=== PATIENT | female | born 1960 | race Caucasian/White ===

== ENCOUNTER → 2021-02-25 | Outpatient (CLI) | payer BC ==
--- NOTE | 2021-03-02 09:53 | CTL ---
EXAMINATION TYPE: CT Low Dose Lung DATE OF EXAM ORDERED: 02/25/2021 HISTORY: Personal history of tobacco use . Lung cancer screening CT DLP: 66.[address] CTDI: 1.9 mGy Automated exposure control for dose reduction was used. SCREENING VISIT: Yes COMPARISON: None TECHNIQUE: Low dose computed tomography scan was performed through the chest at 1 mm thick sections a nd reconstructed images in multiple planes at 1 mm and [address] DIAGNOSTIC QUALITY: Satisfactory FINDINGS: LUNG NODULES: Present, detailed below: Solid pulmonary nodule measuring 4 mm in the right upper lobe (4:100). Solid pulmonary nodule measuring 3 mm in the right lower lobe posterolaterally (4:227). Solid pulmonary nodule measuring 3 mm in the right lower lobe posteriorly (4:168). Calcified granuloma of the left upper lobe. LUNGS: COPD: Severity: Mild centrilobular emphysema of the lung apices Fibrosis: Severity: None Lymph nodes: None Other findings: None RIGHT PLEURAL SPACE: Effusion: None Calcification: None Thickening: Mild Pneumothorax: None LEFT PLEURAL SPACE: Effusion: None Calcification: None Thickening: Mild Pneumothorax: None HEART: Heart Size: Normal Coronary calcification: Minimal Pericardial effusion: None OTHER FINDINGS: Upper abdomen: None Bony thorax: Degenerative changes of the cervical spine Supraclavicular region: None Other: None IMPRESSION: 1. Multiple sub-6 mm pulmonary nodules. 2. Mild centrilobular emphysema. 3. Minimal calcified coronary artery disease. CT LUNG RAD AND CT CHEST RECOMMENDATION: Lung-Rad 2 Benign Appearance or Behavior: Continue annual sc reening with LDCT in 12 months. S Modifier (other clinically significant findings): None
== END | disposition home or self-care (01) ==
LOC: RADCTMAIN 16:49
PROVIDERS: ATTEND Internal Medicine
DX: Z12.2 Encounter for screening for malignant neoplasm of respiratory organs (principal); Z87.891 Personal history of nicotine dependence; R91.8 Other nonspecific abnormal finding of lung field; J43.9 Emphysema, unspecified
CPT/HCPCS: 71271

== ENCOUNTER 2023-01-23 11:16 | Inpatient (IN) | payer BC, OTHER ==
[2023-01-23] MEDS ORDERED: SODIUM CHLORIDE 0.9% 500 ML 500 ML IV STA (11:32)
[2023-01-23] MEDS ORDERED: IBUPROFEN 600 MG TAB PO STA (11:34)
[2023-01-23] MEDS ORDERED: IPRATROPIUM-ALBUTEROL 3 ML NEB INHALATION STA (11:47)
--- NOTE | 2023-01-23 11:52 | ED ---
URI HPI - General Chief Complaint: Upper Respiratory Infection Stated Complaint: sob Time Seen by Provider: 01/23/23 11:22 Source: patient, RN notes reviewed Mode of arrival: ambulatory Limitations: no limitations - History of Present Illness Initial Comments: 62-year-old female presents emergency Department with chief complaint of cough congestion shortness of breath. She states her last few days she's had productive cough she states she has history of COPD, oxygen dependent at home. Patient states she had a negative influenza test Patient was seen at urgent care sent over for evaluation. y reported chest x-ray showing possible mass. Patient is a current smoker he sees Dr. Cuenca. Patient denies any nausea vomiting diarrhea and no recent sick contacts - Related Data Home Medications Medication Instructions Recorded Confirmed Albuterol Sulfate [Albuterol 2 puff PO RT-QID PRN 01/23/23 01/23/23 Sulfate Hfa] Brexpiprazole [Rexulti] 0.5 mg PO HS 01/23/23 01/23/23 Desvenlafaxine [Pristiq ER] 100 mg PO DAILY 01/23/23 01/23/23 Fluticasone/Umeclidin/Vilanter 1 puff INHALATION RT-DAILY 01/23/23 01/23/23 [Trelegy Ellipta 200-62.5-25] HYDROcodone/APAP 7.5-325MG [[place] 1 tab PO TID PRN 01/23/23 01/23/23 7.5-325] Ibuprofen [Motrin] 800 mg PO Q8H PRN 01/23/23 01/23/23 LORazepam [Ativan] 0.5 mg PO HS PRN 01/23/23 01/23/23 lamoTRIgine [LaMICtal] 200 mg PO BID 01/23/23 01/23/23 predniSONE 5 mg PO DAILY 01/23/23 01/23/23 Allergies Allergy/AdvReac Type Severity Reaction Status Date / Time morphine Allergy Rash/Hives Verified 01/23/23 13:51 Review of Systems ROS Statement: Those systems with pertinent positive or pertinent negative responses have been documented in the HPI. ROS Other: All systems not noted in ROS Statement are negative. Past Medical History Past Medical History: COPD History of Any Multi-Drug Resistant Organisms: None Reported Past Surgical History: No Surgical Hx Reported Past Psychological History: No Psychological Hx Reported Smoking Status: Current every day smoker Past Alcohol Use History: None Reported Past Drug Use History: None Reported General Exam Limitations: no limitations General appearance: alert, in no apparent distress Head exam: Present: atraumatic, normocephalic, normal inspection Eye exam: Present: normal appearance, PERRL, EOMI. Absent: scleral icterus, conjunctival injection, periorbital swelling ENT exam: Present: normal exam, normal oropharynx, mucous membranes moist Neck exam: Present: normal inspection, full ROM. Absent: tenderness, meningismus, lymphadenopathy Respiratory exam: Present: wheezes, decreased breath sounds. Absent: normal lung sounds bilaterally, respiratory distress, rales, rhonchi, stridor Cardiovascular Exam: Present: normal rhythm, tachycardia, normal heart sounds. Absent: systolic murmur, diastolic murmur, rubs, gallop, clicks GI/Abdominal exam: Present: soft, normal bowel sounds. Absent: distended, tenderness, guarding, rebound, rigid Course Vital Signs 01/23/23 01/23/23 01/23/23 11:19 11:49 11:51 Temperature 100.1 F H Pulse Rate 103 H 100 Respiratory 24 22 Rate Blood Pressure 108/67 O2 Sat by Pulse 96 Oximetry Medical Decision Making - Medical Decision Making Was pt. sent in by a medical professional or institution (, PA, DOCKET SPECIALIST, urgent care, hospital, or jail...) When possible be specific @ -[Urgent care Did you speak to anyone other than the patient for history (EMS, parent, family, police, friend...)? What history was obtained from this source @ -[No] Did you review nursing and triage notes (agree or disagree)? Why? @ -[I reviewed and agree with nursing and triage notes] Were old charts reviewed (outside hosp., previous admission, EMS record, old EKG, old radiological studies, urgent care reports/EKG's, jail records)? Report findings @ -[No old charts were reviewed] Differential Diagnosis (chest pain, altered mental status, abdominal pain women, abdominal pain men, vaginal bleeding, weakness, fever, dyspnea, syncope, hea dache, dizziness, GI bleed, back pain, seizure, CVA, palpatations, mental health, musculoskeletal)? @ -[Differential Dyspnea: Coronary syndrome, arrhythmia, tamponade, asthma, COPD, pulmonary embolism, pneumonia, pneumothorax, pulmonary effusion, anaphylaxis, diabetic ketoacidosis, flailed chest, pulmonary contusion, diaphragmatic rupture, anemia, neuromuscular, this is not meant to be an all-inclusive list. ] EKG interpreted by me (3pts min.). @ -[As above] X-rays interpreted by me (1pt min.). @ -[None done] CT interpreted by me (1pt min.). @ -[CT chest showing multifocal pneumonia possible underlying mass U/S interpreted by me (1pt. min.). @ -[None done] What testing was considered but not performed or refused? (CT, X-rays, U/S, labs)? Why? @ -[None] What meds were considered but not given or refused? Why? @ -[None] Did you discuss the management of the patient with other professionals (professionals i.e. , PA, DOCKET SPECIALIST, lab, RT, psych nurse, social services coordinator, lead systems developer, teacher, safety and security officer, medical case worker)? Give summary @ -[Dr. Kaye for admission for treatment of COPD exacerbation, multifocal pneumonia Was smoking cessation discussed for >3mins.? @ -[No] Was critical care preformed (if so, how long)? @ -[No] Were there social determinants of health that impacted care today? How? (Homelessness, low income, unemployed, alcoholism, drug addiction, transportation, low edu. Level, literacy, decrease access to med. care, intermediate, rehab)? @ -[No] Was there de-escalation of care discussed even if they declined (Discuss DNR or withdrawal of care, Hospice)? DNR status @ -[No] What co-morbidities impacted this encounter? (DM, HTN, Smoking, COPD, CAD, Cancer, CVA, ARF, Chemo, Hep., AIDS, mental health diagnosis, sleep apnea, morb id obesity)? @ -[COPD, smoking] Was patient admitted / discharged? Hospital course, mention meds given and route, prescriptions, significant lab abnormalities, going to OR and other pertinent info. @ -[Admitted patient has multifocal pneumonia, requiring further oxygenation, noted fever and concern for underlying mass will have consult to pulmonology. Patient was started on Rocephin, azithromycin] Undiagnosed new problem with uncertain prognosis? @ -[No] Drug Therapy requiring intensive monitoring for toxicity (Heparin, Nitro, Insulin, Cardizem)? @ -[No] Were any procedures done? @ -[No] Diagnosis/symptom? @ -[Multifocal pneumonia] Acute, or Chronic, or Acute on Chronic? @ -[Acute] Uncomplicated (without systemic symptoms) or Complicated (systemic symptoms)? @ -[Complicated] Side effects of treatment? @ -[No] Exacerbation, Progression, or Severe Exacerbation? @ -[No] Poses a threat to life or bodily function? How? (Chest pain, USA, PR, pneumonia, PE, COPD, DKA, ARF, appy, cholecystitis, CVA, Diverticulitis, Homicidal, Suicidal, threat to staff... and all critical care pts) @ -[Yes patient has possible respiratory failure - Lab Data Result diagrams: 01/23/23 11:32 01/23/23 11:32 Lab Results 01/23/23 01/23/23 01/23/23 Range/Units 11:32 11:32 11:32 WBC 15.2 H (3.8-10.6) k/uL RBC 3.86 (3.80-5.40) m/uL Hgb 12.0 (11.4-16.0) gm/dL Hct 35.3 (34.0-46.0) % MCV 91.5 (80.0-100.0) fL MCH 31.0 (25.0-35.0) pg MCHC 33.8 (31.0-37.0) g/dL RDW 13.8 (11.5-15.5) % Plt Count 276 (150-450) k/uL MPV 8.2 Neutrophils % 90 % Lymphocytes % 3 % Monocytes % 5 % Eosinophils % 1 % Basophils % 0 % Neutrophils # 13.8 H (1.3-7.7) k/uL Lymphocytes # 0.4 L (1.0-4.8) k/uL Monocytes # 0.7 (0-1.0) k/uL Eosinophils # 0.1 (0-0.7) k/uL Basophils # 0.0 (0-0.2) k/uL PT 10.2 (10.0-12.5) sec INR 0.9 (<1.2) APTT 26.8 (22.0-30.0) sec Sodium 133 L (137-145) mmol/L Potassium 3.7 (3.5-5.1) mmol/L Chloride 97 L (98-107) mmol/L Carbon Dioxide 25 (22-30) mmol/L Anion Gap 11 mmol/L BUN 4 L (7-17) mg/dL Creatinine 0.63 (0.52-1.04) mg/dL Est GFR (CKD-EPI)AfAm >90 (>60 ml/min/1.73 sqM) Est GFR (CKD-EPI)NonAf >90 (>60 ml/min/1.73 sqM) Glucose 126 H (74-99) mg/dL Plasma Lactic Acid [place]ando (0.7-2.0) mmol/L Calcium 9.1 (8.4-10.2) mg/dL Magnesium 1.8 (1.6-2.3) mg/dL Total Bilirubin 0.8 (0.2-1.3) mg/dL AST 56 H (14-36) U/L ALT 87 H (4-34) U/L Alkaline Phosphatase 279 H (38-126) U/L Troponin I (0.000-0.034) ng/mL Total Protein 7.0 (6.3-8.2) g/dL Albumin 3.9 (3.5-5.0) g/dL Influenza Type A (PCR) (Not Detectd) Influenza Type B (PCR) (Not Detectd) RSV (PCR) (Not Detectd) SARS-CoV-2 (PCR) (Not Detectd) 01/23/23 01/23/23 01/23/23 Range/Units 11:32 11:32 11:34 WBC (3.8-10.6) k/uL RBC (3.80-5.40) m/uL Hgb (11.4-16.0) gm/dL Hct (34.0-46.0) % MCV (80.0-100.0) fL MCH (25.0-35.0) pg MCHC (31.0-37.0) g/dL RDW (11.5-15.5) % Plt Count (150-450) k/uL MPV Neutrophils % % Lymphocytes % % Monocytes % % Eosinophils % % Basophils % % Neutrophils # (1.3-7.7) k/uL Lymphocytes # (1.0-4.8) k/uL Monocytes # (0-1.0) k/uL Eosinophils # (0-0.7) k/uL Basophils # (0-0.2) k/uL PT (10.0-12.5) sec INR (<1.2) APTT (22.0-30.0) sec Sodium (137-145) mmol/L Potassium (3.5-5.1) mmol/L Chloride (98-107) mmol/L Carbon Dioxide (22-30) mmol/L Anion Gap mmol/L BUN (7-17) mg/dL Creatinine (0.52-1.04) mg/dL Est GFR (CKD-EPI)AfAm (>60 ml/min/1.73 sqM) Est GFR (CKD-EPI)NonAf (>60 ml/min/1.73 sqM) Glucose (74-99) mg/dL Plasma Lactic Acid Mando 1.3 (0.7-2.0) mmol/L Calcium (8.4-10.2) mg/dL Magnesium (1.6-2.3) mg/dL Total Bilirubin (0.2-1.3) mg/dL AST (14-36) U/L ALT (4-34) U/L Alkaline Phosphatase (38-126) U/L Troponin I 0.020 (0.000-0.034) ng/mL Total Protein (6.3-8.2) g/dL Albumin (3.5-5.0) g/dL Influenza Type A (PCR) Not Detected (Not Detectd) Influenza Type B (PCR) Not Detected (Not Detectd) RSV (PCR) Not Detected (Not Detectd) SARS-CoV-2 (PCR) Not Detected (Not Detectd) - EKG Data -: EKG Interpreted by Me EKG Comments: EKG performed at 11:44 sinus rhythm rate of 98 by mouth 132 QRS 124 QT/QTC 357/413 Disposition Clinical Impression: Multifocal pneumonia, COPD (chronic obstructive pulmonary disease) Disposition: ADMITTED IP TO THIS HOSP Condition: Fair Time of Disposition: 13:38
[2023-01-23 12:02] LABS: Basophils % (A) 0 %; Eosinophils # (A) 0.1 k/uL (0-0.7); Eosinophils % (A) 1 %; HCT 35.3 % (34.0-46.0); Lymphocytes # (A) 0.4 k/uL (1.0-4.8); Lymphocytes % (A) 3 %; MCHC 33.8 g/dL (31.0-37.0); MCV 91.5 fL (80.0-100.0); Mean Platelet Volume 8.2; Monocytes # (A) 0.7 k/uL (0-1.0); Monocytes % (A) 5 %; Neutrophils # (A) 13.8 k/uL (1.3-7.7); Neutrophils % (A) 90 %; Platelet Count 276 k/uL (150-450); RBC 3.86 m/uL (3.80-5.40); RDW 13.8 % (11.5-15.5); WBC 15.2 k/uL (3.8-10.6)
[2023-01-23 12:10] LABS: INR 0.9 (<1.2); Partial Thromboplastin Time 26.8 sec (22.0-30.0); Prothrombin Time 10.2 sec (10.0-12.5)
[2023-01-23 12:13] LABS: ALT 87 U/L (4-34); AST 56 U/L (14-36); African American GFR (CKD) >90 (>60 ml/min/1.73 sqM); Albumin 3.9 g/dL (3.5-5.0); Alkaline Phosphatase 279 U/L (38-126); Anion Gap 11 mmol/L; Blood Urea Nitrogen 4 mg/dL (7-17); Calcium 9.1 mg/dL (8.4-10.2); Carbon Dioxide 25 mmol/L (22-30); Chloride 97 mmol/L (98-107); Glucose 126 mg/dL (74-99); Magnesium 1.8 mg/dL (1.6-2.3); Non-African American GFR(CKD) >90 (>60 ml/min/1.73 sqM); Potassium 3.7 mmol/L (3.5-5.1); Sodium 133 mmol/L (137-145); Total Bilirubin 0.8 mg/dL (0.2-1.3)
[2023-01-23] MEDS ORDERED: methylPREDNISolone SOD SUCCI 125 MG/2 ML VIAL IV STA (12:22)
--- NOTE | 2023-01-23 13:00 | CT ---
EXAMINATION TYPE: CT chest w con DATE OF EXAM: 01/23/2023 COMPARISON: None HISTORY: SOB CT DLP: 226.5 mGycm Automated exposure control for dose reduction was used. CONTRAST: CT scan of the chest is performed with IV Contrast, patient injected with 100 mL of Isovue 370. FINDINGS: LUNGS: There is masslike opacity at the left lower lobe which is pleural-based with surrounding retic ulonodular infiltrate. Measurement is approximately 3.2 x 2.0 cm. This could reflect infectious proce ss over neoplasm is not excluded. Also within the right suprahilar region there is elongated density noted with air bronchograms measuring 3.4 x 1.6 cm which also extends to the pleural surface. There a re scattered reticulonodular infiltrates seen bilaterally. More nodular density is seen within the ri ght upper lobe measuring 1 cm. Additional nodular density right lower lobe anteriorly at the costophr enic sulcus measures 1.5 cm. Additional basilar atelectasis and nodular density right medial lung bas e. MEDIASTINUM: There are no greater than 1 cm hilar or mediastinal lymph nodes. No pericardial effusi on is seen. Thoracic aorta is of normal caliber. The heart is not enlarged. UPPER ABDOMEN: No significant abnormality appreciated. OTHER: No additional significant abnormality is seen. IMPRESSION: 1. Probable multifocal pneumonia. Neoplasm is not excluded. Strict clinical correlation as well as fo llow-up until resolution is advised.
[2023-01-23] MEDS ORDERED: AZITHROMYCIN 500 MG in SODIUM CHLORIDE 0.9% 250 ML IVPB STA (13:27)
[2023-01-23] MEDS ORDERED: PNEUMONIA PROTOCOL UTILIZED 1 EACH MISC PO PRN (13:27)
[2023-01-23] MEDS ORDERED: HYDROcodone/APAP 7.5-325MG 1 EACH TAB PO PRN (13:55)
[2023-01-23] MEDS ORDERED: IBUPROFEN 800 MG TAB PO PRN (13:55)
[2023-01-23] MEDS ORDERED: LORazepam 0.5 MG TAB PO PRN (13:55)
[2023-01-23] MEDS ORDERED: LACTULOSE 20 GM/30 ML CUP PO PRN (14:12)
[2023-01-23] MEDS ORDERED: ACETAMINOPHEN TAB 325 MG TAB PO PRN (14:12)
[2023-01-23] MEDS ORDERED: NALOXONE 0.4 MG/ML 1 ML VIAL IV PRN (14:12)
[2023-01-23] MEDS ORDERED: MELATONIN 3 MG TABLET PO PRN (14:12)
[2023-01-23] MEDS ORDERED: ONDANSETRON 4 MG/2 ML VIAL IVP PRN (14:12)
[2023-01-23] MEDS ORDERED: CALCIUM CARBONATE 500 MG CHEWABLE PO PRN (14:12)
[2023-01-23] MEDS: ENOXAPARIN 40 MG/0.4 ML SYRINGE SQ SCH (14:31)
[2023-01-23] MEDS: FORMOTEROL FUMARATE 20 MCG/2 ML NEBU INHALATION SCH ×2 (15:29→20:59)
[2023-01-23] MEDS: BUDESONIDE 1 MG/2 ML NEBU INHALATION SCH ×2 (15:29→21:00)
[2023-01-23] MEDS: IPRATROPIUM-ALBUTEROL 3 ML NEB INHALATION SCH ×2 (15:31→21:00)
[2023-01-23] MEDS ORDERED: IPRATROPIUM 0.5 MG/2.5 ML NEBU INHALATION SCH (16:00)
[2023-01-23] MEDS: methylPREDNISolone SOD SUCCI 40 MG/ML 1 ML VIAL IV SCH (16:23)
[2023-01-23] MEDS: NICOTINE 14MG/24HR PATCH TRANSDERM SCH (18:23)
[2023-01-23] MEDS: LACTATED RINGERS 1,000 ML IV SCH (18:23)
--- NOTE | 2023-01-23 19:44 | P.HPIM ---
History of Present Illness H&P Date: 01/23/23 Chief Complaint: Short of breath This is a pleasant 62-year-old patient who follows with , and community worker Dr. Oropeza. Long-standing smoker. Presents with 4 days of worsening shortness of breath wheezing. Some yellow sputum. No fever and chills. Able to tolerate a diet. Rather short of breath at rest. Accompanied by her . Review of systems: GEN.: Tired EYES: None HEENT: None NECK: None RESPIRATORY: As above CARDIOVASCULAR: None GASTROINTESTINAL: None GENITOURINARY: Urine stress incontinence MUSCULOSKELETAL: Some joint pain LYMPHATICS: None HEMATOLOGICAL: None PSYCHIATRY: None NEUROLOGICAL: None Past medical history to include: COPD Social history: Smokes one half a pack a day for last 47 years. . Physical examination: VITAL SIGNS: 100.1, 103, 24, 108/67, 96% on 4 L GENERAL: BMI 22.2, sitting at edge of the bed, short of breath. EYES: Pupils equal. Conjunctiva normal. HEENT: External appearance of nose and ears normal, oral cavity grossly normal. NECK: JVD not raised; masses not palpable. HEART: First and second heart sounds are normal; no edema. LUNGS: Respiratory rate increased; diminished breath sounds prolonged expiration, unable to speak in full sentences, using accessory muscles. ABDOMEN: Soft, nontender, liver spleen not palpable, no masses palpable. PSYCH: Alert and oriented x3; mood and affect normal. MUSCULOSKELETAL:No Clubbing/cyanosis;muscles-grossly intact. OA NEUROLOGICAL: Cranial nerves grossly intact; no facial asymmetry, power and sensation grossly intact. LYMPHATICS: No lymph nodes palpable in the axilla and neck INVESTIGATIONS, reviewed in the clinical context: White count 15.2 hemoglobin 12 platelets 276 sodium 133 potassium 3.7 creatinine 0.63 Influenza type A, B, RSV, COVID-19: Not detected CT chest with contrast: Masslike opacities to the left lower lobe just purulent base with surrounding reticular nodular infiltrates. 3.2 x 2 cm. Density in the right side with air bronchogram 3.4 x 1.6 elevated. Scattered ventricular nodular infiltrates. Chest x-ray film personally reviewed by me-prominent pulmonary artery. Right- sided infiltrate. Assessment plan: -Probable multifocal pneumonia. Suspect gram-negative organism. IV ceftriaxone, Zithromax. Sputum for Gram stain and culture. Blood culture -Sepsis secondary to pneumonia IV antibiotics. -Question lung mass and computed tomography scan. Follow-up with pulmonary -Acute severe COPD exacerbation in a current smoker DuoNeb every 4. IV Solu-Medrol. Nebulized Pulmicort and nebulized Perforomist. -Nicotine dependence, cigarette smoker Nicotine patch -Depression, anxiety Pristiq ER -Primary osteoarthritis Motrin as needed -Chronic urinary stress incontinence Care was discussed with the patient and at the bedside. Questions answered. Pulmonary consulted Past Medical History Past Medical History: COPD History of Any Multi-Drug Resistant Organisms: None Reported Past Surgical History: No Surgical Hx Reported Past Psychological History: No Psychological Hx Reported Smoking Status: Current every day smoker Past Alcohol Use History: None Reported Past Drug Use History: None Reported Medications and Allergies Home Medications Medication Instructions Recorded Confirmed Type Albuterol Sulfate [Albuterol 2 puff PO RT-QID PRN 01/23/23 01/23/23 History Sulfate Hfa] Brexpiprazole [Rexulti] 0.5 mg PO HS 01/23/23 01/23/23 History Desvenlafaxine [Pristiq ER] 100 mg PO DAILY 01/23/23 01/23/23 History Fluticasone/Umeclidin/Vilanter 1 puff INHALATION RT-DAILY 01/23/23 01/23/23 History [Trelegy Ellipta 200-62.5-25] HYDROcodone/APAP 7.5-325MG [[place] 1 tab PO TID PRN 01/23/23 01/23/23 History 7.5-325] Ibuprofen [Motrin] 800 mg PO Q8H PRN 01/23/23 01/23/23 History LORazepam [Ativan] 0.5 mg PO HS PRN 01/23/23 01/23/23 History lamoTRIgine [LaMICtal] 200 mg PO BID 01/23/23 01/23/23 History predniSONE 5 mg PO DAILY 01/23/23 01/23/23 History Allergies Allergy/AdvReac Type Severity Reaction Status Date / Time morphine Allergy Rash/Hives Verified 01/23/23 13:51 Physical Exam Vitals: Vital Signs Temp Pulse Resp BP Pulse Ox 01/23/23 15:44 96 01/23/23 15:31 100 01/23/23 15:18 96 18 97/59 95 01/23/23 11:51 100 01/23/23 11:49 22 01/23/23 11:19 100.1 F H 103 H 24 108/67 96 Intake and Output 01/23/23 01/23/23 01/23/23 06:59 14:59 22:59 Other: Weight 49.895 kg Results CBC & Chem 7: 01/23/23 11:32 01/23/23 11:32 Labs: Abnormal Lab Results - Last 24 Hours (Table) 01/23/23 01/23/23 Range/Units 11:32 11:32 WBC 15.2 H (3.8-10.6) k/uL Neutrophils # 13.8 H (1.3-7.7) k/uL Lymphocytes # 0.4 L (1.0-4.8) k/uL Sodium 133 L (137-145) mmol/L Chloride 97 L (98-107) mmol/L BUN 4 L (7-17) mg/dL Glucose 126 H (74-99) mg/dL AST 56 H (14-36) U/L ALT 87 H (4-34) U/L Alkaline Phosphatase 279 H (38-126) U/L
--- NOTE | 2023-01-23 19:48 | XR ---
EXAMINATION TYPE: XR chest 2V DATE OF EXAM: 01/23/2023 5:52 PM CLINICAL INDICATION:Female, 62 years old with history of Short of breath cough; PH[facility] COMPARISON: Chest radiographs from 01/23/2023, CT 10/23/2022 TECHNIQUE: XR chest 2V Frontal and lateral views of the chest. FINDINGS: Lungs/Pleura: Perihilar airspace opacities. Findings correlate There is flattening of the diaphragm with increased lucency of the lungs. No evidence of pneumothorax, pleural effusion or focal consolidation. Pulmonary vascularity: Unremarkable. Heart/mediastinum: Cardiomediastinal silhouette is unremarkable. Musculoskeletal: No acute osseous pathology. IMPRESSION: 1. Right perihilar airspace opacities correlate with prior CT. 2. COPD changes.
[2023-01-23] MEDS: lamoTRIgine 100 MG TAB PO SCH (20:54)
[2023-01-23] MEDS: Brexpiprazole [Rexulti] 0.5 MG Tablet PO SCH (20:56)
[2023-01-24] MEDS: methylPREDNISolone SOD SUCCI 40 MG/ML 1 ML VIAL IV SCH ×2 (00:02→23:22)
[2023-01-24] MEDS: IPRATROPIUM-ALBUTEROL 3 ML NEB INHALATION SCH ×6 (01:05→21:06)
--- NOTE | 2023-01-24 02:26 | P.CNPUL ---
History of Present Illness Consult date: 01/24/23 Requesting physician: Carlos Vela Reason for consult: COPD, pneumonia Chief complaint: shortness of breath and chest tightness History of present illness: I am seeing this patient in new consultation today 01/24/2023 in the emergency room after she presented with with increased shortness of breath, cough, and chest tightness. Patient is a 62-year-old female with past medical history significant for very severe COPD with an FEV1 24% of predicted, home oxygen and steroid dependence, current and ongoing tobacco dependence, and bipolar disorder. Shed does follow with Dr. Kothari in the office for management of her very severe COPD. Patient has been experiencing increasing shortness of breath, productive cough with yellow sputum, intermittent fevers, and chest tightness since . Denies hemoptysis or chest pain. Denies sick contacts or recent travel. She finally came to the emergency room yesterday morning with these symptoms. Patient is currently sitting up in bed, on 2 L/m nasal cannula, in no acute distress. Chest CT on arrival showed a masslike opacity within the left lo wer lobe measuring 3.2 x 2 cm which is pleural based surrounded with reticulonodular infiltrates. There was also a right suprahilar elongated density with air bronchograms measuring 3.4 x 1.6 cm. There were more nodular densities seen within the right upper lobe measuring 1 cm and additional nodular densities within the right lower lobe anteriorly at the costophrenic sulcus measuring 1.5 cm. When clinically correlating with the patient's symptoms, this is thought to reflect multifocal community-acquired pneumonia. Underlying malignancy cannot be excluded, and findings should be followed to ensure resolution. Patient did have a previous low-dose lung CT back in February, which showed multiple sub 6 mm pulmonary nodules predominately in the right upper and lower lobes. On arrival, the patient was febrile with a T-max of 100.1F. CBC on arrival showed some leukocytosis with a WBC count of 15.2, hemoglobin 12, hematocrit 35.3, platelets 276. CMP on arrival shows sodium 133, potassium 3.7, chloride 97, serum bicarb 25, BUN 4, creatinine 0.63, glucose 126. LFTs were mildly elevate d. troponin was 0.02. EKG done on arrival shows normal sinus rhythm with a right bundle-branch block and left axis deviation. Lactic acid level was 1.3. Negative for influenza, RSV, COVID-19. Patient is empirically been started on a combination of azithromycin and ceftriaxone for community-acquired pneumonia. Overall, the patient appears nontoxic and is hemodynamically stable. She will be admitted to the general medical floor once bed available. Review of Systems REVIEW OF SYSTEMS: CONSTITUTIONAL: Denies any recent significant weight loss or weight gain. EYES: Denies change in vision. EARS, NOSE, MOUTH, THROAT: Denies headaches, denies sore throat. CARDIOVASCULAR: Denies chest pain, palpitations or syncopal episodes. RESPIRATORY: see HPI GASTROINTESTINAL: Denies change in appetite, abdominal pain, nausea and vomiting, or diarrhea GENITOURINARY: Denies hematuria, denies infections. MUSKULOSKELETAL: Denies pain, denies swelling. INTEGUMENTARY: Denies rash, denies eczema. NEUROLOGICAL: Denies recent memory loss, no recent seizure activity. PSYCHIATRIC: Denies anxiety, denies depression. HEMATOLOGIC/LYMPHATIC: Denies anemia, denies enlarged lymph node Past Medical History Past Medical History: COPD History of Any Multi-Drug Resistant Organisms: None Reported Past Surgical History: No Surgical Hx Reported Past Anesthesia/Blood Transfusion Reactions: No Reported Reaction Past Psychological History: No Psychological Hx Reported Smoking Status: Current every day smoker Past Alcohol Use History: None Reported Past Drug Use History: None Reported Medications and Allergies Home Medications Medication Instructions Recorded Confirmed Type Albuterol Sulfate [Albuterol 2 puff PO RT-QID PRN 01/23/23 01/23/23 History Sulfate Hfa] Brexpiprazole [Rexulti] 0.5 mg PO HS 01/23/23 01/23/23 History Desvenlafaxine [Pristiq ER] 100 mg PO DAILY 01/23/23 01/23/23 History Fluticasone/Umeclidin/Vilanter 1 puff INHALATION RT-DAILY 01/23/23 01/23/23 History [Trelegy Ellipta 200-62.5-25] HYDROcodone/APAP 7.5-325MG [[place] 1 tab PO TID PRN 01/23/23 01/23/23 History 7.5-325] Ibuprofen [Motrin] 800 mg PO Q8H PRN 01/23/23 01/23/23 History LORazepam [Ativan] 0.5 mg PO HS PRN 01/23/23 01/23/23 History lamoTRIgine [LaMICtal] 200 mg PO BID 01/23/23 01/23/23 History predniSONE 5 mg PO DAILY 01/23/23 01/23/23 History Allergies Allergy/AdvReac Type Severity Reaction Status Date / Time morphine Allergy Rash/Hives Verified 01/23/23 13:51 Physical Exam Vitals: Vital Signs Temp Pulse Resp BP Pulse Ox 01/24/23 01:15 84 01/24/23 01:06 80 01/23/23 22:15 19 103/75 01/23/23 21:26 98 01/23/23 21:16 92 01/23/23 21:15 92 01/23/23 21:00 92 01/23/23 20:56 84 19 103/75 95 01/23/23 18:00 90 18 101/62 95 01/23/23 15:44 96 01/23/23 15:31 100 01/23/23 15:18 96 18 97/59 95 01/23/23 11:51 100 01/23/23 11:49 22 01/23/23 11:19 100.1 F H 103 H 24 108/67 96 Intake and Output 01/23/23 01/23/23 01/24/23 14:59 22:59 06:59 Other: Weight 49.895 kg 49.895 kg GENERAL EXAM: Alert, 62-year-old white female appearing stated age, comfortable in no apparent distress. HEAD: Normocephalic and atraumatic EYES: Normal reaction of pupils, equal size. NOSE: Clear with pink turbinates. THROAT: No erythema or exudates. NECK: No masses, no JVD. CHEST: No chest wall deformity. LUNGS: Equal air entry with mild expiratory wheezes heard throughout. On 2 L/m nasal cannula. No conversational dyspnea or accessory muscle use.. CVS: S1 and S2 normal with no audible murmur, regular rhythm. No extra heart sounds ABDOMEN: No hepatosplenomegaly, active bowel sounds, no guarding or rigidity. SPINE: No scoliosis or deformity SKIN: No rashes CENTRAL NERVOUS SYSTEM: No focal deficits, tone is normal in all 4 extremities. EXTREMITIES: There is no peripheral edema, clubbing, or cyanosis. Peripheral pulses are intact. Results - Laboratory Findings CBC and BMP: 01/23/23 11:32 01/23/23 11:32 PT/INR, D-dimer PT 10.2 sec (10.0-12.5) 01/23/23 11:32 INR 0.9 (<1.2) 01/23/23 11:32 Abnormal lab findings: Abnormal Labs 01/23/23 01/23/23 11:32 11:32 WBC 15.2 H Neutrophils # 13.8 H Lymphocytes # 0.4 L Sodium 133 L Chloride 97 L BUN 4 L Glucose 126 H AST 56 H ALT 87 H Alkaline Phosphatase 279 H - Diagnostic Findings Chest x-ray: image reviewed CT scan - chest: image reviewed Assessment and Plan Assessment: Acute COPD exacerbation, secondary to multifocal community-acquired pneumonia. Chest CT on arrival showed a masslike opacity within the left lower lobe measuring 3.2 x 2 cm which is pleural based surrounded with reticulonodular infiltrates. There was also a right suprahilar elongated density with air bronchograms measuring 3.4 x 1.6 cm. There were more nodular densities seen within the right upper lobe measuring 1 cm and additional nodular densities within the right lower lobe anteriorly at the costophrenic sulcus measuring 1.5 cm. No mediastinal or hilar adenopathy. When clinically correlating with the patient's symptoms, this is thought to reflect multifocal community-acquired pneumonia. Underlying malignancy cannot be excluded, and findings should be followed to ensure resolution. Leukocytosis, secondary to above Chronic hypoxemic respiratory failure, currently on 2 L/m nasal cannula Very severe chronic obstructive pulmonary disease, with an FEV1 24% of predicted Chronic ongoing tobacco dependence History of pulmonary nodules Mild transaminitis Bipolar disorder plan: Patient's medications, labs, imaging reviewed Continue supplemental oxygen Continue empiric antibiotics for community acquired pneumonia Recommend follow-up to ensure resolution of masslike densities. Start patient on a combination of medications for COPD including budesonide, formoterol, DuoNeb's, and IV Solu-Medrol. Nicotine replacement was offered Smoking cessation counseling performed patient is a DO NOT RESUSCITATE/DO NOT INTUBATE We will continue to follow, and further recommendations are forthcoming I have personally seen and examined the patient, performed the documentation and the assessment and plan as written. Number of minutes spent on the visit:20 Time with Patient: Greater than 30
[2023-01-24] MEDS: LACTATED RINGERS 1,000 ML IV SCH ×3 (03:36→20:50)
[2023-01-24] MEDS: methylPREDNISolone SOD SUCCI 125 MG/2 ML VIAL IV SCH ×3 (05:32→17:58)
--- NOTE | 2023-01-24 06:57 | XR ---
EXAMINATION TYPE: XR chest 1V portable DATE OF EXAM: 01/24/2023 6:51 AM COMPARISON: Chest radiographs from 01/23/2023 TECHNIQUE: XR chest 1V portable Portable AP radiograph of the chest. CLINICAL INDICATION:Female, 62 years old with history of pneumonia; FINDINGS: Lungs/Pleura: No pneumothorax or pleural effusion. Slightly decreased patchy airspace opacities withi n the right middle and lower lung. Slightly increased left basilar patchy airspace opacity. Pulmonary vascularity: Unremarkable. Heart/mediastinum: Cardiomediastinal silhouette is unremarkable. Musculoskeletal: No acute osseous pathology. IMPRESSION: Slightly decreased patchy airspace opacities within the right middle and lower lung. Slightly increas ed patchy airspace opacities within the left lower lung which may represent atelectasis versus infilt rates.
[2023-01-24] MEDS ORDERED: SYMBICORT 80-4.5 MCG INHALER INHALATION SCH (08:00)
[2023-01-24] MEDS: NICOTINE 14MG/24HR PATCH TRANSDERM SCH (08:49)
[2023-01-24] MEDS: lamoTRIgine 100 MG TAB PO SCH ×2 (08:49→19:43)
[2023-01-24] MEDS: ENOXAPARIN 40 MG/0.4 ML SYRINGE SQ SCH (08:49)
[2023-01-24] MEDS: FORMOTEROL FUMARATE 20 MCG/2 ML NEBU INHALATION SCH ×2 (09:37→21:06)
[2023-01-24] MEDS: BUDESONIDE 1 MG/2 ML NEBU INHALATION SCH ×2 (09:37→21:06)
[2023-01-24] MEDS: AZITHROMYCIN 500 MG in SODIUM CHLORIDE 0.9% 250 ML IVPB SCH (10:02)
[2023-01-24] MEDS: DESVENLAFAXINE SUCCINATE 50 MG TAB.ER.24H PO SCH (10:02)
[2023-01-24 13:30] VITALS: BMI 22.2
--- NOTE | 2023-01-24 21:19 | P.PN ---
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 Long-standing smoker. Presents with 4 days of worsening shortness of breath wheezing. Some yellow sputum. No fever and chills. Able to tolerate a diet. Rather short of breath at rest. Accompanied by her . January 24: Admitted with COPD exacerbation and pneumonia. Still coughing associated. Some improvement in breathing. Continue with IV ceftriaxone, azithromycin, IV Solu-Medrol bronchodilators. Doesn't like hospital food. Discussed with patient has been. Incentive spirometry. Active Medications Acetaminophen (Acetaminophen Tab 325 Mg Tab) 650 mg PO Q6HR PRN PRN Reason: Mild Pain or Fever > 100.5 Hydrocodone Bitart/Acetaminophen (Hydrocodone/Apap 7.5-325mg 1 Each Tab) 1 each PO TID PRN PRN Reason: Pain Albuterol/Ipratropium (Ipratropium-Albuterol 3 Ml Neb) 3 ml INHALATION RT-Q4H [facility] Last Admin: 01/24/23 21:06 Dose: 3 ml Budesonide (Budesonide 1 Mg/2 Ml Nebu) 1 mg INHALATION RT-BID [facility] Last Admin: 01/24/23 21:06 Dose: 1 mg Calcium Carbonate/Glycine (Calcium Carbonate 500 Mg Chewable) 1,000 mg PO Q4HR PRN PRN Reason: Dyspepsia Desvenlafaxine Succinate (Desvenlafaxine Succinate 50 Mg Tab.Er.24h) 100 mg PO DAILY [facility] Last Admin: 01/24/23 10:02 Dose: 100 mg Enoxaparin Sodium (Enoxaparin 40 Mg/0.4 Ml Syringe) 40 mg SQ DAILY [facility] Last Admin: 01/24/23 08:49 Dose: 40 mg Formoterol Fumarate (Formoterol Fumarate 20 Mcg/2 Ml Nebu) 20 mcg INHALATION RT-BID [facility] Last Admin: 01/24/23 21:06 Dose: 20 mcg Ceftriaxone Sodium 2 gm/ (Sodium Chloride) 50 mls @ 100 mls/hr IVPB Q24HR [facility]; Protocol Stop: 01/27/23 09:29 Last Admin: 01/24/23 08:48 Dose: 100 mls/hr Azithromycin 500 mg/ Sodium (Chloride) 250 mls @ 250 mls/hr IVPB DAILY [facility]; Protocol Stop: 01/25/23 09:59 Last Admin: 01/24/23 10:02 Dose: 250 mls/hr Lactated Ringer's (Lactated Ringers) 1,000 mls @ 125 mls/hr IV .Q8H [facility] Last Admin: 01/24/23 20:50 Dose: Not Given Ibuprofen (Ibuprofen 800 Mg Tab) 800 mg PO Q8H PRN PRN Reason: Fever and/ or Pain Lactulose (Lactulose 20 Gm/30 Ml Cup) 20 gm PO DAILY PRN PRN Reason: Constipation Lamotrigine (Lamotrigine 100 Mg Tab) 200 mg PO BID [facility] Last Admin: 01/24/23 19:43 Dose: 200 mg Lorazepam (Lorazepam 0.5 Mg Tab) 0.5 mg PO HS PRN PRN Reason: Anxiety Melatonin (Melatonin 3 Mg Tablet) 3 mg PO HS PRN PRN Reason: Insomnia Last Admin: 01/24/23 19:43 Dose: 3 mg Methylprednisolone Sodium Succinate (Methylprednisolone Sod Succi 40 Mg/Ml 1 Ml Vial) 40 mg IV Q8HR [facility] Miscellaneous Information (Pneumonia Protocol Utilized 1 Each Misc) 1 each PO ONCE PRN PRN Reason: Per Protocol Naloxone HCl (Naloxone 0.4 Mg/Ml 1 Ml Vial) 0.2 mg IV Q2M PRN PRN Reason: Opioid Reversal Nicotine (Nicotine 14mg/24hr Patch) 1 patch TRANSDERM DAILY [facility] Last Admin: 01/24/23 08:49 Dose: 1 patch Non-Formulary Medication (Brexpiprazole [Rexulti]) 0.5 mg PO HS [facility] Last Admin: 01/23/23 20:56 Dose: Not Given Ondansetron HCl (Ondansetron 4 Mg/2 Ml Vial) 4 mg IVP Q8HR PRN PRN Reason: Nausea And Vomiting Past medical history to include: COPD Social history: Smokes one half a pack a day for last 47 years. . Physical examination: VITAL SIGNS: 97.8, 88, 17, 133/80, 97% on 2 L GENERAL: sitting at edge of the bed, breathing a bit better EYES: Pupils equal. Conjunctiva normal. HEENT: External appearance of nose and ears normal, oral cavity grossly normal. NECK: JVD not raised; masses not palpable. HEART: First and second heart sounds are normal; no edema. LUNGS: Respiratory rate increased; diminished breath sounds prolonged expiration, ABDOMEN: Soft, nontender, liver spleen not palpable, no masses palpable. PSYCH: Alert and oriented x3; mood and affect normal. MUSCULOSKELETAL:No Clubbing/cyanosis;muscles-grossly intact. OA INVESTIGATIONS, reviewed in the clinical context: January 24: Procalcitonin 1.98 White count 15.2 hemoglobin 12 platelets 276 sodium 133 potassium 3.7 creatinine 0.63 Influenza type A, B, RSV, COVID-19: Not detected CT chest with contrast: Masslike opacities to the left lower lobe just purulent base with surrounding reticular nodular infiltrates. 3.2 x 2 cm. Density in the right side with air bronchogram 3.4 x 1.6 elevated. Scattered ventricular nodular infiltrates. Chest x-ray film personally reviewed by me-prominent pulmonary artery. Right- sided infiltrate. Assessment plan: -multifocal pneumonia. Suspect gram-negative organism. IV ceftriaxone, Zithromax. Sputum for Gram stain and culture. Blood culture -Sepsis secondary to pneumonia: Better IV antibiotics. -Question lung mass and computed tomography scan. Follow-up with pulmonary -Acute severe COPD exacerbation in a current smoker DuoNeb every 4. IV Solu-Medrol 40 mg every 8. Nebulized Pulmicort and nebulized Perforomist. -Nicotine dependence, cigarette smoker Nicotine patch -Depression, anxiety Pristiq ER -Primary osteoarthritis Motrin as needed -Chronic urinary stress incontinence Discussed with patient . And incentive spirometry. Mucinex.
[2023-01-24] MEDS: Brexpiprazole [Rexulti] 0.5 MG Tablet PO SCH (21:33)
[2023-01-24] MEDS: guaiFENesin 600 MG TABLET.ER PO SCH (21:33)
[2023-01-25] MEDS: IPRATROPIUM-ALBUTEROL 3 ML NEB INHALATION SCH ×6 (00:18→19:58)
[2023-01-25] MEDS: LACTATED RINGERS 1,000 ML IV SCH ×3 (00:58→18:07)
[2023-01-25] MEDS: methylPREDNISolone SOD SUCCI 40 MG/ML 1 ML VIAL IV SCH ×3 (09:38→23:53)
[2023-01-25] MEDS: NICOTINE 14MG/24HR PATCH TRANSDERM SCH (09:38)
[2023-01-25] MEDS: DESVENLAFAXINE SUCCINATE 50 MG TAB.ER.24H PO SCH (09:39)
[2023-01-25] MEDS: lamoTRIgine 100 MG TAB PO SCH ×2 (09:40→22:22)
[2023-01-25] MEDS: ENOXAPARIN 40 MG/0.4 ML SYRINGE SQ SCH (09:40)
[2023-01-25] MEDS: guaiFENesin 600 MG TABLET.ER PO SCH ×4 (09:40→20:46)
[2023-01-25] MEDS: AZITHROMYCIN 500 MG in SODIUM CHLORIDE 0.9% 250 ML IVPB SCH (09:41)
[2023-01-25] MEDS: BUDESONIDE 1 MG/2 ML NEBU INHALATION SCH ×2 (09:42→19:58)
[2023-01-25] MEDS: FORMOTEROL FUMARATE 20 MCG/2 ML NEBU INHALATION SCH ×2 (09:42→19:58)
--- NOTE | 2023-01-25 11:44 | P.PN ---
Subjective Progress Note Date: 01/25/23 I am seeing this patient in new consultation today 01/24/2023 in the emergency room after she presented with with increased shortness of breath, cough, and chest tightness. Patient is a 62-year-old female with past medical history significant for very severe COPD with an FEV1 24% of predicted, home oxygen and steroid dependence, current and ongoing tobacco dependence, and bipolar disorder. Shed does follow with Dr. Kothari in the office for management of her very severe COPD. Patient has been experiencing increasing shortness of breath, productive cough with yellow sputum, intermittent fevers, and chest tightness since . Denies hemoptysis or chest pain. Denies sick contacts or recent travel. She finally came to the emergency room yesterday morning with these symptoms. Patient is currently sitting up in bed, on 2 L/m nasal cannula, in no acute distress. Chest CT on arrival showed a masslike opacity within the left lower lobe measuring 3.2 x 2 cm which is pleural based surrounded with reticulonodular infiltrates. There was also a right suprahilar elongated density with air bronchograms measuring 3.4 x 1.6 cm. There were more nodular densities seen within the right upper lobe measuring 1 cm and additional nodular densities within the right lower lobe anteriorly at the costophrenic sulcus measuring 1.5 cm. When clinically correlating with the patient's symptoms, this is thought to reflect multifocal community-acquired pneumonia. Underlying malignancy cannot be excluded, and findings should be followed to ensure resolution. Patient did have a previous low-dose lung CT back in February, which showed multiple sub 6 mm pulmonary nodules predominately in the right upper and lower lobes. On arrival, the patient was febrile with a T-max of 100.1F. CBC on arrival showed some leukocytosis with a WBC count of 15.2, hemoglobin 12, hematocrit 35.3, platelets 276. CMP on arrival shows sodium 133, potassium 3.7, chloride 97, serum bicarb 25, BUN 4, creatinine 0.63, glucose 126. LFTs were mildly elevated. troponin was 0.02. EKG done on arrival shows normal sinus rhythm with a right bundle-branch block and left axis deviation. Lactic acid level was 1.3. Negative for influenza, RSV, COVID-19. Patient is empirically been started on a combination of azithromycin and ceftriaxone for community-acquired pneumonia. Overall, the patient appears nontoxic and is hemodynamically stable. She will be admitted to the general medical floor once bed available. The patient is seen today 01/25/2023 in follow-up on the regular medical floor. She is currently sitting up in bed. Awake and alert in no acute distress. Feeling a bit better today compared to yesterday. Still not quite back to her baseline. She is maintaining O2 saturations in the 90s on 3 L nasal cannula. Lactated Ringer's at 125 ML's per hour. A chest x-ray revealed slightly decreased patchy airspace opacities within the right middle and lower lung. Slightly increased patchy airspace opacity left lower lobe. Pro calcitonin 1.98. Legionella screen negative. She is continued on ceftriaxone and azithromycin. She remains on DuoNeb inhalations, Pulmicort and Perforomist inhalations, Solu- Medrol. NicoDerm patch in place. Objective - Vital Signs Vital signs: Vital Signs Temp 98.6 F 01/25/23 06:45 Pulse 96 01/25/23 10:03 Resp 16 01/25/23 06:45 BP 117/68 01/25/23 06:45 Pulse Ox 95 01/25/23 06:45 FiO2 Intake & Output 01/24/23 01/25/23 01/25/23 18:59 06:59 18:59 Output Total 3 0 Balance -3 0 Weight 49.895 kg Output: Urine 3 Stool 0 0 Other: Voiding Method Toilet Toilet # Voids 0 # Emeses 1 - Exam GENERAL EXAM: Alert, very pleasant 62-year-old female, on 3 L nasal cannula, comfortable in no apparent distress. HEAD: Normocephalic and atraumatic EYES: Normal reaction of pupils, equal size. NOSE: Clear with pink turbinates. THROAT: No erythema or exudates. NECK: No masses, no JVD. CHEST: No chest wall deformity. LUNGS: Equal air entry with mild expiratory wheezes heard throughout. On 3 L/m nasal cannula. No conversational dyspnea. CVS: S1 and S2 normal with no audible murmur, regular rhythm. No extra heart sounds ABDOMEN: No hepatosplenomegaly, active bowel sounds, no guarding or rigidity. SPINE: No scoliosis or deformity SKIN: No rashes CENTRAL NERVOUS SYSTEM: No focal deficits, tone is normal in all 4 extremities. EXTREMITIES: There is no peripheral edema, clubbing, or cyanosis. Peripheral pulses are intact. - Labs CBC & Chem 7: 01/23/23 11:32 01/23/23 11:32 Labs: Abnormal Lab Results - Last 24 Hours (Table) 01/24/23 Range/Units 06:58 Procalcitonin 1.98 H (0.02-0.09) ng/mL Microbiology - Last 24 Hours (Table) 01/23/23 15:43 Gram Stain - Preliminary Sputum Sputum Culture - Preliminary Streptococcus pneumoniae [place] albicans 01/23/23 14:15 Blood Culture - Preliminary Blood 01/23/23 14:00 Blood Culture - Preliminary Blood Assessment and Plan Assessment: Acute COPD exacerbation, secondary to multifocal community-acquired pneumonia. Chest CT on arrival showed a masslike opacity within the left lower lobe measuring 3.2 x 2 cm which is pleural based surrounded with reticulonodular infiltrates. There was also a right suprahilar elongated density with air bronchograms measuring 3.4 x 1.6 cm. There were more nodular densities seen within the right upper lobe measuring 1 cm and additional nodular densities within the right lower lobe anteriorly at the costophrenic sulcus measuring 1.5 cm. No mediastinal or hilar adenopathy. This is thought to reflect multifocal community-acquired pneumonia. Pro-calcitonin 1.98. Underlying malignancy cannot be excluded, and findings should be followed to ensure resolution. Leukocytosis, secondary to above Chronic hypoxemic respiratory failure, currently on 2 L/m nasal cannula Very severe chronic obstructive pulmonary disease, with an FEV1 24% of predicted Chronic ongoing tobacco dependence History of pulmonary nodules Mild transaminitis Bipolar disorder Plan: The patient was seen and evaluated Chest x-ray, labs and medications reviewed Pro calcitonin 1.98 Continue ceftriaxone and azithromycin Continue bronchodilators, steroids Titrate the FiO2 as tolerated We will continue to follow This patient was seen independently by the nurse practitioner I have personally seen and examined the patient, performed the documentation and the assessment and plan as written. Number of minutes spent on the visit: 24.
--- NOTE | 2023-01-25 19:38 | P.PN ---
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 Long-standing smoker. Presents with 4 days of worsening shortness of breath wheezing. Some yellow sputum. No fever and chills. Able to tolerate a diet. Rather short of breath at rest. Accompanied by her . January 24: Admitted with COPD exacerbation and pneumonia. Still coughing associated. Some improvement in breathing. Continue with IV ceftriaxone, azithromycin, IV Solu-Medrol bronchodilators. Doesn't like hospital food. Discussed with patient has been. Incentive spirometry. January 25: Having bouts of coughing. Some sputum present. Some wheezing. Continue current treatment. Told to avoid cold liquids and ice and use warm water with salt gargle. Discussed with patient and at the bedside. Active Medications Acetaminophen (Acetaminophen Tab 325 Mg Tab) 650 mg PO Q6HR PRN PRN Reason: Mild Pain or Fever > 100.5 Hydrocodone Bitart/Acetaminophen (Hydrocodone/Apap 7.5-325mg 1 Each Tab) 1 each PO TID PRN PRN Reason: Pain Albuterol/Ipratropium (Ipratropium-Albuterol 3 Ml Neb) 3 ml INHALATION RT-Q4H [facility] Last Admin: 01/25/23 16:03 Dose: 3 ml Budesonide (Budesonide 1 Mg/2 Ml Nebu) 1 mg INHALATION RT-BID [facility] Last Admin: 01/25/23 09:42 Dose: 1 mg Calcium Carbonate/Glycine (Calcium Carbonate 500 Mg Chewable) 1,000 mg PO Q4HR PRN PRN Reason: Dyspepsia Desvenlafaxine Succinate (Desvenlafaxine Succinate 50 Mg Tab.Er.24h) 100 mg PO DAILY [facility] Last Admin: 01/25/23 09:39 Dose: 100 mg Enoxaparin Sodium (Enoxaparin 40 Mg/0.4 Ml Syringe) 40 mg SQ DAILY [facility] Last Admin: 01/25/23 09:40 Dose: 40 mg Formoterol Fumarate (Formoterol Fumarate 20 Mcg/2 Ml Nebu) 20 mcg INHALATION RT-BID [facility] Last Admin: 01/25/23 09:42 Dose: 20 mcg Guaifenesin (Guaifenesin 600 Mg Tablet.Er) 600 mg PO QID [facility] Last Admin: 10/17/23 18:06 Dose: 600 mg Lactated Ringer's (Lactated Ringers) 1,000 mls @ 125 mls/hr IV .Q8H [facility] Last Admin: 01/25/23 18:07 Dose: 125 mls/hr Ceftriaxone Sodium 2 gm/ (Sodium Chloride) 50 mls @ 100 mls/hr IVPB Q12HR [facility]; Protocol Stop: 01/25/23 21:29 Last Admin: 01/25/23 09:44 Dose: 100 mls/hr Ibuprofen (Ibuprofen 800 Mg Tab) 800 mg PO Q8H PRN PRN Reason: Fever and/ or Pain Lactulose (Lactulose 20 Gm/30 Ml Cup) 20 gm PO DAILY PRN PRN Reason: Constipation Lamotrigine (Lamotrigine 100 Mg Tab) 200 mg PO BID [facility] Last Admin: 01/25/23 09:40 Dose: 200 mg Lorazepam (Lorazepam 0.5 Mg Tab) 0.5 mg PO HS PRN PRN Reason: Anxiety Last Admin: 01/25/23 01:23 Dose: 0.5 mg Melatonin (Melatonin 3 Mg Tablet) 3 mg PO HS PRN PRN Reason: Insomnia Last Admin: 01/24/23 19:43 Dose: 3 mg Methylprednisolone Sodium Succinate (Methylprednisolone Sod Succi 40 Mg/Ml 1 Ml Vial) 40 mg IV Q8HR [facility] Last Admin: 01/25/23 18:06 Dose: 40 mg Miscellaneous Information (Pneumonia Protocol Utilized 1 Each Misc) 1 each PO ONCE PRN PRN Reason: Per Protocol Naloxone HCl (Naloxone 0.4 Mg/Ml 1 Ml Vial) 0.2 mg IV Q2M PRN PRN Reason: Opioid Reversal Nicotine (Nicotine 14mg/24hr Patch) 1 patch TRANSDERM DAILY [facility] Last Admin: 01/25/23 09:38 Dose: 1 patch Brexpiprazole [ Rexulti] 0.5 Mg Tablet 0.5 mg PO HS [facility] Last Admin: 01/24/23 21:33 Dose: 0.5 mg Ondansetron HCl (Ondansetron 4 Mg/2 Ml Vial) 4 mg IVP Q8HR PRN PRN Reason: Nausea And Vomiting Past medical history to include: COPD Social history: Smokes one half a pack a day for last 47 years. . Physical examination: VITAL SIGNS: 98.3, 97, 14, 110/69, 97% on 3 L GENERAL: Up in bed, bouts of coughing EYES: Pupils equal. Conjunctiva normal. HEENT: External appearance of nose and ears normal, oral cavity grossly normal. NECK: JVD not raised; masses not palpable. HEART: First and second heart sounds are normal; no edema. LUNGS: Respiratory rate increased; diminished breath sounds prolonged expiration, ABDOMEN: Soft, nontender, liver spleen not palpable, no masses palpable. PSYCH: Alert and oriented x3; mood and affect normal. MUSCULOSKELETAL:No Clubbing/cyanosis;muscles-grossly intact. OA INVESTIGATIONS, reviewed in the clinical context: January 24: Procalcitonin 1.98 White count 15.2 hemoglobin 12 platelets 276 sodium 133 potassium 3.7 creatinine 0.63 Influenza type A, B, RSV, COVID-19: Not detected CT chest with contrast: Masslike opacities to the left lower lobe just purulent base with surrounding reticular nodular infiltrates. 3.2 x 2 cm. Density in the right side with air bronchogram 3.4 x 1.6 elevated. Scattered ventricular nodular infiltrates. Chest x-ray film personally reviewed by me-prominent pulmonary artery. Right- sided infiltrate. Assessment plan: -multifocal pneumonia. Suspect gram-negative organism.: Slow to respond IV ceftriaxone, Zithromax. Sputum for Gram stain and culture. Blood culture -Sepsis secondary to pneumonia: Better IV antibiotics. -Question lung mass and computed tomography scan. Follow-up with pulmonary -Acute severe COPD exacerbation in a current smoker: Slow to respond DuoNeb every 4. IV Solu-Medrol 40 mg every 8. Nebulized Pulmicort and nebulized Perforomist. -Nicotine dependence, cigarette smoker Nicotine patch -Depression, anxiety Pristiq ER -Primary osteoarthritis Motrin as needed -Chronic urinary stress incontinence Continue current medications. Warm water with salt gargle. Up in chair.
[2023-01-25] MEDS: Brexpiprazole [Rexulti] 0.5 MG Tablet PO SCH (20:46)
[2023-01-26] MEDS: IPRATROPIUM-ALBUTEROL 3 ML NEB INHALATION SCH ×6 (01:00→21:07)
[2023-01-26] MEDS: LACTATED RINGERS 1,000 ML IV SCH ×2 (01:57→11:27)
[2023-01-26] MEDS: ENOXAPARIN 40 MG/0.4 ML SYRINGE SQ SCH (08:00)
[2023-01-26] MEDS: methylPREDNISolone SOD SUCCI 40 MG/ML 1 ML VIAL IV SCH ×2 (08:00→17:06)
[2023-01-26] MEDS: NICOTINE 14MG/24HR PATCH TRANSDERM SCH (08:00)
[2023-01-26] MEDS: DESVENLAFAXINE SUCCINATE 50 MG TAB.ER.24H PO SCH (08:01)
[2023-01-26] MEDS: guaiFENesin 600 MG TABLET.ER PO SCH ×4 (08:01→20:12)
[2023-01-26] MEDS: lamoTRIgine 100 MG TAB PO SCH ×2 (08:01→20:12)
[2023-01-26] MEDS: BUDESONIDE 1 MG/2 ML NEBU INHALATION SCH ×2 (08:53→21:07)
[2023-01-26] MEDS: FORMOTEROL FUMARATE 20 MCG/2 ML NEBU INHALATION SCH ×2 (09:10→21:07)
--- NOTE | 2023-01-26 15:58 | P.PN ---
Subjective Progress Note Date: 01/26/23 I am seeing this patient in new consultation today 01/24/2023 in the emergency room after she presented with with increased shortness of breath, cough, and chest tightness. Patient is a 62-year-old female with past medical history significant for very severe COPD with an FEV1 24% of predicted, home oxygen and steroid dependence, current and ongoing tobacco dependence, and bipolar disorder. Shed does follow with Dr. Kothari in the office for management of her very severe COPD. Patient has been experiencing increasing shortness of breath, productive cough with yellow sputum, intermittent fevers, and chest tightness since . Denies hemoptysis or chest pain. Denies sick contacts or recent travel. She finally came to the emergency room yesterday morning with these symptoms. Patient is currently sitting up in bed, on 2 L/m nasal cannula, in no acute distress. Chest CT on arrival showed a masslike opacity within the left lower lobe measuring 3.2 x 2 cm which is pleural based surrounded with reticulonodular infiltrates. There was also a right suprahilar elongated density with air bronchograms measuring 3.4 x 1.6 cm. There were more nodular densities seen within the right upper lobe measuring 1 cm and additional nodular densities within the right lower lobe anteriorly at the costophrenic sulcus measuring 1.5 cm. When clinically correlating with the patient's symptoms, this is thought to reflect multifocal community-acquired pneumonia. Underlying malignancy cannot be excluded, and findings should be followed to ensure resolution. Patient did have a previous low-dose lung CT back in February, which showed multiple sub 6 mm pulmonary nodules predominately in the right upper and lower lobes. On arrival, the patient was febrile with a T-max of 100.1F. CBC on arrival showed some leukocytosis with a WBC count of 15.2, hemoglobin 12, hematocrit 35.3, platelets 276. CMP on arrival shows sodium 133, potassium 3.7, chloride 97, serum bicarb 25, BUN 4, creatinine 0.63, glucose 126. LFTs were mildly elevated. troponin was 0.02. EKG done on arrival shows normal sinus rhythm with a right bundle-branch block and left axis deviation. Lactic acid level was 1.3. Negative for influenza, RSV, COVID-19. Patient is empirically been started on a combination of azithromycin and ceftriaxone for community-acquired pneumonia. Overall, the patient appears nontoxic and is hemodynamically stable. She will be admitted to the general medical floor once bed available. The patient is seen today 01/25/2023 in follow-up on the regular medical floor. She is currently sitting up in bed. Awake and alert in no acute distress. Feeling a bit better today compared to yesterday. Still not quite back to her baseline. She is maintaining O2 saturations in the 90s on 3 L nasal cannula. Lactated Ringer's at 125 ML's per hour. A chest x-ray revealed slightly decreased patchy airspace opacities within the right middle and lower lung. Slightly increased patchy airspace opacity left lower lobe. Pro calcitonin 1.98. Legionella screen negative. She is continued on ceftriaxone and azithromycin. She remains on DuoNeb inhalations, Pulmicort and Perforomist inhalations, Solu- Medrol. NicoDerm patch in place. The patient is seen today 01/26/2023 in follow-up on the regular medical floor. She is sitting up at the bedside. Awake and alert in no acute distress. She is feeling better today. She is maintaining O2 saturations in the 90s on 3 L per nasal cannula. She has lactated Ringer's at 20 ML's per hour. She continues with a harsh cough. Sputum culture positive for Streptococcus pneumoniae, Klebsiella oxytoca and Julianna. She is continued on meropenem. Continue and Du oNeb inhalations, Pulmicort and Perforomist inhalations, Solu-Medrol. NicoDerm patch in place. Lovenox for DVT prophylaxis. Objective - Vital Signs Vital signs: Vital Signs Temp 98.0 F 01/26/23 15:48 Pulse 71 01/26/23 15:48 Resp 16 01/26/23 15:48 BP 133/79 01/26/23 15:48 Pulse Ox 94 L 01/26/23 15:48 FiO2 Intake & Output 01/25/23 01/26/23 01/26/23 18:59 06:59 18:59 Intake Total 1080 Balance 1080 Intake: Oral 1080 Other: # Voids 3 4 # Emeses 1 - Exam GENERAL EXAM: Alert, very pleasant 62-year-old female, sitting up at the bedside, in no apparent distress. HEAD: Normocephalic and atraumatic EYES: Normal reaction of pupils, equal size. NOSE: Clear with pink turbinates. THROAT: No erythema or exudates. NECK: No masses, no JVD. CHEST: No chest wall deformity. LUNGS: Equal air entry with mild expiratory wheezes heard throughout. On 3 L/m nasal cannula. CVS: S1 and S2 normal with no audible murmur, regular rhythm. No extra heart sounds ABDOMEN: No hepatosplenomegaly, active bowel sounds, no guarding or rigidity. SPINE: No scoliosis or deformity SKIN: No rashes CENTRAL NERVOUS SYSTEM: No focal deficits, tone is normal in all 4 extremities. EXTREMITIES: There is no peripheral edema, clubbing, or cyanosis. Peripheral pulses are intact. - Labs CBC & Chem 7: 01/23/23 11:32 01/23/23 11:32 Labs: Microbiology - Last 24 Hours (Table) 01/23/23 15:43 Gram Stain - Final Sputum Sputum Culture - Final Streptococcus pneumoniae Julianna albicans Klebsiella oxytoca 01/23/23 14:15 Blood Culture - Preliminary Blood 01/23/23 14:00 Blood Culture - Preliminary Blood Assessment and Plan Assessment: Acute COPD exacerbation, secondary to multifocal community-acquired pneumonia. Chest CT on arrival showed a masslike opacity within the left lower lobe measuring 3.2 x 2 cm which is pleural based surrounded with reticulonodular infiltrates. There was also a right suprahilar elongated density with air bronchograms measuring 3.4 x 1.6 cm. There were more nodular densities seen within the right upper lobe measuring 1 cm and additional nodular densities within the right lower lobe anteriorly at the costophrenic sulcus measuring 1.5 cm. No mediastinal or hilar adenopathy. This is thought to reflect multifocal community-acquired pneumonia. Pro-calcitonin 1.98. Underlying malignancy cannot be excluded, and findings should be followed to ensure resolution. Sputum culture positive for Klebsiella oxytoca and Streptococcus pneumoniae. Now on meropenem Leukocytosis, secondary to above Chronic hypoxemic respiratory failure, currently on 2 L/m nasal cannula Very severe chronic obstructive pulmonary disease, with an FEV1 24% of predicted Chronic ongoing tobacco dependence History of pulmonary nodules Mild transaminitis Bipolar disorder Plan: The patient was seen and evaluated Medications reviewed Sputum culture reviewed Now on meropenem Continue bronchodilators, steroids Titrate the FiO2 as tolerated Educated regarding the importance of complete smoking cessation NicoDerm patch in place We will continue to follow I have personally seen and examined the patient, performed the documentation and the assessment and plan as written. Number of minutes spent on the visit: 10.
[2023-01-26] MEDS: MEROPENEM 1 GM in SODIUM CHLORIDE 0.9% 100 ML IVPB SCH (17:06)
[2023-01-26] MEDS: Brexpiprazole [Rexulti] 0.5 MG Tablet PO SCH (20:13)
[2023-01-26] MEDS ORDERED: FLUCONAZOLE 100 MG TAB PO ONE (20:28)
--- NOTE | 2023-01-26 20:33 | P.PN ---
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 Long-standing smoker. Presents with 4 days of worsening shortness of breath wheezing. Some yellow sputum. No fever and chills. Able to tolerate a diet. Rather short of breath at rest. Accompanied by her . January 24: Admitted with COPD exacerbation and pneumonia. Still coughing associated. Some improvement in breathing. Continue with IV ceftriaxone, azithromycin, IV Solu-Medrol bronchodilators. Doesn't like hospital food. Discussed with patient has been. Incentive spirometry. January 25: Having bouts of coughing. Some sputum present. Some wheezing. Continue current treatment. Told to avoid cold liquids and ice and use warm water with salt gargle. Discussed with patient and at the bedside. January 26: Short of breath. Still bringing up significant sputum. Oral intake fair. Discussed with patient . Continue current treatment. Sputum culture growing Klebsiella oxytoca, Streptococcus pneumoniae and some Julianna. Based on sensitivity change IV antibiotics to meropenem. Consulate length about smoking. Active Medications Acetaminophen (Acetaminophen Tab 325 Mg Tab) 650 mg PO Q6HR PRN PRN Reason: Mild Pain or Fever > 100.5 Hydrocodone Bitart/Acetaminophen (Hydrocodone/Apap 7.5-325mg 1 Each Tab) 1 each PO TID PRN PRN Reason: Pain Albuterol/Ipratropium (Ipratropium-Albuterol 3 Ml Neb) 3 ml INHALATION RT-Q4H [facility] Last Admin: 01/26/23 15:48 Dose: 3 ml Budesonide (Budesonide 1 Mg/2 Ml Nebu) 1 mg INHALATION RT-BID [facility] Last Admin: 01/26/23 08:53 Dose: 1 mg Calcium Carbonate/Glycine (Calcium Carbonate 500 Mg Chewable) 1,000 mg PO Q4HR PRN PRN Reason: Dyspepsia Desvenlafaxine Succinate (Desvenlafaxine Succinate 50 Mg Tab.Er.24h) 100 mg PO DAILY [facility] Last Admin: 01/26/23 08:01 Dose: 100 mg Enoxaparin Sodium (Enoxaparin 40 Mg/0.4 Ml Syringe) 40 mg SQ DAILY [facility] Last Admin: 01/26/23 08:00 Dose: 40 mg Fluconazole (Fluconazole 100 Mg Tab) 100 mg PO DAILY [facility]; Protocol Formoterol Fumarate (Formoterol Fumarate 20 Mcg/2 Ml Nebu) 20 mcg INHALATION RT-BID [facility] Last Admin: 01/26/23 09:10 Dose: 20 mcg Guaifenesin (Guaifenesin 600 Mg Tablet.Er) 600 mg PO QID [facility] Last Admin: 01/26/23 20:12 Dose: 600 mg Lactated Ringer's (Lactated Ringers) 1,000 mls @ 20 mls/hr IV .Q24H [facility] Last Admin: 01/26/23 11:27 Dose: 20 mls/hr Meropenem 1 gm/ Sodium (Chloride) 100 mls @ 33.3 mls/hr IVPB Q8HR [facility]; Protocol Last Admin: 01/26/23 17:06 Dose: 33.3 mls/hr Ibuprofen (Ibuprofen 800 Mg Tab) 800 mg PO Q8H PRN PRN Reason: Fever and/ or Pain Lactulose (Lactulose 20 Gm/30 Ml Cup) 20 gm PO DAILY PRN PRN Reason: Constipation Lamotrigine (Lamotrigine 100 Mg Tab) 200 mg PO BID [facility] Last Admin: 01/26/23 20:12 Dose: 200 mg Lorazepam (Lorazepam 0.5 Mg Tab) 0.5 mg PO HS PRN PRN Reason: Anxiety Last Admin: 01/25/23 01:23 Dose: 0.5 mg Melatonin (Melatonin 3 Mg Tablet) 3 mg PO HS PRN PRN Reason: Insomnia Last Admin: 01/24/23 19:43 Dose: 3 mg Methylprednisolone Sodium Succinate (Methylprednisolone Sod Succi 40 Mg/Ml 1 Ml Vial) 40 mg IV Q8HR [facility] Last Admin: 01/26/23 17:06 Dose: 40 mg Miscellaneous Information (Pneumonia Protocol Utilized 1 Each Misc) 1 each PO ONCE PRN PRN Reason: Per Protocol Naloxone HCl (Naloxone 0.4 Mg/Ml 1 Ml Vial) 0.2 mg IV Q2M PRN PRN Reason: Opioid Reversal Nicotine (Nicotine 14mg/24hr Patch) 1 patch TRANSDERM DAILY [facility] Last Admin: 01/26/23 08:00 Dose: 1 patch Brexpiprazole [ Rexulti] 0.5 Mg Tablet 0.5 mg PO HS [facility] Last Admin: 01/26/23 20:13 Dose: 0.5 mg Ondansetron HCl (Ondansetron 4 Mg/2 Ml Vial) 4 mg IVP Q8HR PRN PRN Reason: Nausea And Vomiting Past medical history to include: COPD Social history: Smokes one half a pack a day for last 47 years. . Physical examination: VITAL SIGNS: 97.6, 69, 14, 95/63, 94% on 2 L GENERAL: Up in bed, of shortness of breath EYES: Pupils equal. Conjunctiva normal. HEENT: External appearance of nose and ears normal, oral cavity grossly normal. NECK: JVD not raised; masses not palpable. HEART: First and second heart sounds are normal; no edema. LUNGS: Respiratory rate increased; diminished breath sounds prolonged expiration, ABDOMEN: Soft, nontender, liver spleen not palpable, no masses palpable. PSYCH: Alert and oriented x3; mood and affect normal. MUSCULOSKELETAL:No Clubbing/cyanosis;muscles-grossly intact. OA INVESTIGATIONS, reviewed in the clinical context: Sputum culture: Streptococcus pneumoniae, Julianna albicans, Klebsiella oxytoca January 24: Procalcitonin 1.98 White count 15.2 hemoglobin 12 platelets 276 sodium 133 potassium 3.7 creatinine 0.63 Influenza type A, B, RSV, COVID-19: Not detected CT chest with contrast: Masslike opacities to the left lower lobe just purulent base with surrounding reticular nodular infiltrates. 3.2 x 2 cm. Density in the right side with air bronchogram 3.4 x 1.6 elevated. Scattered ventricular nodular infiltrates. Chest x-ray film personally reviewed by me-prominent pulmonary artery. Right- sided infiltrate. Assessment plan: -multifocal pneumonia. Streptococcus pneumoniae, Klebsiella oxytoca Start IV meropenem. -Sepsis secondary to pneumonia: Better IV antibiotics. -Question lung mass and computed tomography scan. Follow-up with pulmonary -Acute severe COPD exacerbation in a current smoker: Slow to respond DuoNeb every 4. IV Solu-Medrol 40 mg every 8. Nebulized Pulmicort and nebulized Perforomist. -Nicotine dependence, cigarette smoker Nicotine patch -Depression, anxiety Pristiq ER -Primary osteoarthritis Motrin as needed -Chronic urinary stress incontinence Change antibiotics to IV for meropenem. Add Diflucan. Other medications to continue.
[2023-01-27] MEDS: IPRATROPIUM-ALBUTEROL 3 ML NEB INHALATION SCH ×3 (06:00→12:50)
[2023-01-27 07:20] VITALS: RESP 16
[2023-01-27] MEDS: MEROPENEM 1 GM in SODIUM CHLORIDE 0.9% 100 ML IVPB SCH ×2 (07:38→09:15)
[2023-01-27] MEDS: methylPREDNISolone SOD SUCCI 40 MG/ML 1 ML VIAL IV SCH ×2 (07:38→09:15)
[2023-01-27] MEDS: BUDESONIDE 1 MG/2 ML NEBU INHALATION SCH (08:43)
[2023-01-27] MEDS: FORMOTEROL FUMARATE 20 MCG/2 ML NEBU INHALATION SCH (08:43)
[2023-01-27] MEDS ORDERED: FLUCONAZOLE 100 MG TAB PO SCH (09:00)
[2023-01-27] MEDS: lamoTRIgine 100 MG TAB PO SCH (09:10)
[2023-01-27] MEDS: NICOTINE 14MG/24HR PATCH TRANSDERM SCH (09:11)
[2023-01-27] MEDS: DESVENLAFAXINE SUCCINATE 50 MG TAB.ER.24H PO SCH (09:11)
[2023-01-27] MEDS: guaiFENesin 600 MG TABLET.ER PO SCH ×2 (09:12→12:21)
[2023-01-27] MEDS: ENOXAPARIN 40 MG/0.4 ML SYRINGE SQ SCH (09:12)
[2023-01-27] MEDS: LACTATED RINGERS 1,000 ML IV SCH (10:08)
[2023-01-27 13:01] VITALS: BP 138/61; TEMP 97.9
[2023-01-27 13:39] VITALS: PULSE 80
--- NOTE | 2023-01-27 15:00 | P.PN ---
Subjective Progress Note Date: 01/27/23 I am seeing this patient in new consultation today 01/24/2023 in the emergency room after she presented with with increased shortness of breath, cough, and chest tightness. Patient is a 62-year-old female with past medical history significant for very severe COPD with an FEV1 24% of predicted, home oxygen and steroid dependence, current and ongoing tobacco dependence, and bipolar disorder. Shed does follow with Dr. Kothari in the office for management of her very severe COPD. Patient has been experiencing increasing shortness of breath, productive cough with yellow sputum, intermittent fevers, and chest tightness since . Denies hemoptysis or chest pain. Denies sick contacts or recent travel. She finally came to the emergency room yesterday morning with these symptoms. Patient is currently sitting up in bed, on 2 L/m nasal cannula, in no acute distress. Chest CT on arrival showed a masslike opacity within the left lower lobe measuring 3.2 x 2 cm which is pleural based surrounded with reticulonodular infiltrates. There was also a right suprahilar elongated density with air bronchograms measuring 3.4 x 1.6 cm. There were more nodular densities seen within the right upper lobe measuring 1 cm and additional nodular densities within the right lower lobe anteriorly at the costophrenic sulcus measuring 1.5 cm. When clinically correlating with the patient's symptoms, this is thought to reflect multifocal community-acquired pneumonia. Underlying malignancy cannot be excluded, and findings should be followed to ensure resolution. Patient did have a previous low-dose lung CT back in February, which showed multiple sub 6 mm pulmonary nodules predominately in the right upper and lower lobes. On arrival, the patient was febrile with a T-max of 100.1F. CBC on arrival showed some leukocytosis with a WBC count of 15.2, hemoglobin 12, hematocrit 35.3, platelets 276. CMP on arrival shows sodium 133, potassium 3.7, chloride 97, serum bicarb 25, BUN 4, creatinine 0.63, glucose 126. LFTs were mildly elevated. troponin was 0.02. EKG done on arrival shows normal sinus rhythm with a right bundle-branch block and left axis deviation. Lactic acid level was 1.3. Negative for influenza, RSV, COVID-19. Patient is empirically been started on a combination of azithromycin and ceftriaxone for community-acquired pneumonia. Overall, the patient appears nontoxic and is hemodynamically stable. She will be admitted to the general medical floor once bed available. The patient is seen today 01/25/2023 in follow-up on the regular medical floor. She is currently sitting up in bed. Awake and alert in no acute distress. Feeling a bit better today compared to yesterday. Still not quite back to her baseline. She is maintaining O2 saturations in the 90s on 3 L nasal cannula. Lactated Ringer's at 125 ML's per hour. A chest x-ray revealed slightly decreased patchy airspace opacities within the right middle and lower lung. Slightly increased patchy airspace opacity left lower lobe. Pro calcitonin 1.98. Legionella screen negative. She is continued on ceftriaxone and azithromycin. She remains on DuoNeb inhalations, Pulmicort and Perforomist inhalations, Solu- Medrol. NicoDerm patch in place. The patient is seen today 01/26/2023 in follow-up on the regular medical floor. She is sitting up at the bedside. Awake and alert in no acute distress. She is feeling better today. She is maintaining O2 saturations in the 90s on 3 L per nasal cannula. She has lactated Ringer's at 20 ML's per hour. She continues with a harsh cough. Sputum culture positive for Streptococcus pneumoniae, Klebsiella oxytoca and Julianna. She is continued on meropenem. Continue and Du oNeb inhalations, Pulmicort and Perforomist inhalations, Solu-Medrol. NicoDerm patch in place. Lovenox for DVT prophylaxis. The patient is seen today 01/27/2023 in follow-up on the regular medical floor. She is awake and alert in no acute distress. Currently sitting up in bed. She is maintaining good O2 saturations in the 90s on 2 L/m per nasal cannula. No IV fluids. Sputum culture was positive for Klebsiella oxytoca, Streptococcus pneumoniae and Julianna. She is continued on ceftriaxone and meropenem. She remains on DuoNeb inhalations, Pulmicort and Perforomist inhalations, Solu-Medro l. Objective - Vital Signs Vital signs: Vital Signs Temp 97.9 F 01/27/23 12:54 Pulse 80 01/27/23 13:16 Resp 16 01/27/23 13:16 BP 138/61 01/27/23 12:54 Pulse Ox 97 01/27/23 12:54 FiO2 Intake & Output 01/26/23 01/27/23 01/27/23 18:59 06:59 18:59 Other: Voiding Method Toilet # Voids 4 3 1 # Bowel Movements 1 - Exam GENERAL EXAM: Alert, 62-year-old female, resting in bed, in no apparent distress. HEAD: Normocephalic and atraumatic EYES: Normal reaction of pupils, equal size. NOSE: Clear with pink turbinates. THROAT: No erythema or exudates. NECK: No masses, no JVD. CHEST: No chest wall deformity. LUNGS: Equal air entry with mild expiratory wheezes heard throughout. On 3 L/m nasal cannula. CVS: S1 and S2 normal with no audible murmur, regular rhythm. No extra heart sounds ABDOMEN: No hepatosplenomegaly, active bowel sounds, no guarding or rigidity. SPINE: No scoliosis or deformity SKIN: No rashes CENTRAL NERVOUS SYSTEM: No focal deficits, tone is normal in all 4 extremities. EXTREMITIES: There is no peripheral edema, clubbing, or cyanosis. Peripheral pulses are intact. - Labs CBC & Chem 7: 01/23/23 11:32 01/23/23 11:32 Labs: Microbiology - Last 24 Hours (Table) 01/23/23 14:15 Blood Culture - Preliminary Blood 01/23/23 14:00 Blood Culture - Preliminary Blood Assessment and Plan Assessment: Acute COPD exacerbation, secondary to multifocal community-acquired pneumonia. Chest CT on arrival showed a masslike opacity within the left lower lobe measuring 3.2 x 2 cm which is pleural based surrounded with reticulonodular infiltrates. There was also a right suprahilar elongated density with air bronchograms measuring 3.4 x 1.6 cm. There were more nodular densities seen within the right upper lobe measuring 1 cm and additional nodular densities within the right lower lobe anteriorly at the costophrenic sulcus measuring 1.5 cm. No mediastinal or hilar adenopathy. This is thought to reflect multifocal community-acquired pneumonia. Pro-calcitonin 1.98. Underlying malignancy cannot be excluded, and findings should be followed to ensure resolution. Sputum culture positive for Klebsiella oxytoca and Streptococcus pneumoniae. Now on meropenem Leukocytosis, secondary to above Chronic hypoxemic respiratory failure, currently on 2 L/m nasal cannula Very severe chronic obstructive pulmonary disease, with an FEV1 24% of predicted Chronic ongoing tobacco dependence History of pulmonary nodules Mild transaminitis Bipolar disorder Plan: The patient was seen and evaluated Medications reviewed She is cleared for discharge Continue her home pulmonary medications, oxygen Continue prednisone taper Continue course of Levaquin Continue Diflucan Educated regarding the importance of complete smoking cessation NicoDerm patch in place Follow-up in our office in 1 week I have personally seen and examined the patient, performed the documentation and the assessment and plan as written. Number of minutes spent on the visit: 10.
--- NOTE | 2023-01-27 21:55 | P.DS ---
Providers Date of admission: 01/23/23 13:27 Expected date of discharge: 01/27/23 Attending physician: Daryl Kaye Consults: 01/23/23 13:27 Consult Physician Routine Consulting Provider: Jamilah Oropeza Consult Reason/Comments: Multifocal pneumonia, COPD exacerbation Do you want consulting provider notified?: Yes Primary care physician: [facility] [place] [facility] Course: Chief Complaint: Short of breath This is a pleasant 62-year-old patient who follows with , and clinic physician Dr. Oropeza. Long-standing smoker. Presents with 4 days of worse landon shortness of breath wheezing. Some yellow sputum. No fever and chills. Able to tolerate a diet. Rather short of breath at rest. Accompanied by her . January 24: Admitted with COPD exacerbation and pneumonia. Still coughing associated. Some improvement in breathing. Continue with IV ceftriaxone, azithromycin, IV Solu-Medrol bronchodilators. Doesn't like hospital food. Discussed with patient has been. Incentive spirometry. January 25: Having bouts of coughing. Some sputum present. Some wheezing. Continue current treatment. Told to avoid cold liquids and ice and use warm water with salt gargle. Discussed with patient and at the bedside. January 26: Short of breath. Still bringing up significant sputum. Oral intake fair. Discussed with patient . Continue current treatment. Sputum culture growing Klebsiella oxytoca, Streptococcus pneumoniae and some Julianna. Based on sensitivity change IV antibiotics to meropenem. Consulate length about smoking. January 27: Breathing better. Patient has 2 L of oxygen at home. Minimal sputum production. Ambulating. Smoking cessation again discussed. Discussed with Dr. Villar. Stable for discharge. He'll complete a course of Levaquin and Diflucan. Followed by Dr. Oropeza. Discussion and discharge planning more than 35 minutes Past medical history to include: COPD Social history: Smokes one half a pack a day for last 47 years. . Physical examination: VITAL SIGNS: 97.9, 88, 16, 1:30/61, 97% on 2 L GENERAL: Today the edge of bed, breathing stable EYES: Pupils equal. Conjunctiva normal. HEENT: External appearance of nose and ears normal, oral cavity grossly normal. NECK: JVD not raised; masses not palpable. HEART: First and second heart sounds are normal; no edema. LUNGS: Respiratory rate normal; diminished breath sounds ABDOMEN: Soft, nontender, liver spleen not palpable, no masses palpable. PSYCH: Alert and oriented x3; mood and affect normal. MUSCULOSKELETAL:No Clubbing/cyanosis;muscles-grossly intact. OA INVESTIGATIONS, reviewed in the clinical context: Sputum culture: Streptococcus pneumoniae, Julianna albicans, Klebsiella oxytoca January 24: Procalcitonin 1.98 White count 15.2 hemoglobin 12 platelets 276 sodium 133 potassium 3.7 creatinine 0.63 Influenza type A, B, RSV, COVID-19: Not detected CT chest with contrast: Masslike opacities to the left lower lobe just purulent base with surrounding reticular nodular infiltrates. 3.2 x 2 cm. Density in the right side with air bronchogram 3.4 x 1.6 elevated. Scattered ventricular nodular infiltrates. Chest x-ray film personally reviewed by me-prominent pulmonary artery. Right- sided infiltrate. Assessment plan: -multifocal pneumonia. Streptococcus pneumoniae, Klebsiella oxytoca IV meropenem. Complete a course of Levaquin 750 mg a day for 5 days -Sepsis secondary to pneumonia: Better IV antibiotics. -Question lung mass and computed tomography scan. Follow-up with pulmonary -Acute severe COPD exacerbation in a current smoker: Slow to respond DuoNeb every 4. IV Solu-Medrol 40 mg every 8. Nebulized Pulmicort and nebulized Perforomist. 9 discharge on DuoNeb 4 times a day.Trelegy -Nicotine dependence, cigarette smoker Nicotine patch -Depression, anxiety Pristiq ER -Primary osteoarthritis Motrin as needed -Chronic urinary stress incontinence Disposition: Home Plan - Discharge Summary Discharge Rx Participant: No New Discharge Prescriptions: New Ipratropium-Albuterol Nebulize [Duoneb 0.5 mg-3 mg/3 ml Soln] 3 ml INHALATION QID #120 each Nicotine 14Mg/24Hr Patch [Habitrol] 1 patch TRANSDERM DAILY #14 patch predniSONE 10 mg PO DAILY #30 tab Levofloxacin [Levaquin] 750 mg PO DAILY #5 tab Fluconazole [Diflucan] 100 mg PO DAILY #7 tab Continue LORazepam [Ativan] 0.5 mg PO HS PRN PRN Reason: Anxiety Ibuprofen [Motrin] 800 mg PO Q8H PRN PRN Reason: Fever And/ Or Pain Albuterol Sulfate [Albuterol Sulfate Hfa] 2 puff PO RT-QID PRN PRN Reason: Shortness Of Breath lamoTRIgine [LaMICtal] 200 mg PO BID HYDROcodone/APAP 7.5-325MG [[place] 7.5-325] 1 tab PO TID PRN PRN Reason: Pain Brexpiprazole [Rexulti] 0.5 mg PO HS predniSONE 5 mg PO DAILY Fluticasone/Umeclidin/Vilanter [Trelegy Ellipta 200-62.5-25] 1 puff INHALATIO N RT-DAILY Desvenlafaxine [Pristiq ER] 100 mg PO DAILY Discharge Medication List Albuterol Sulfate [Albuterol Sulfate Hfa] 2 puff PO RT-QID PRN 01/23/23 [History] Brexpiprazole [Rexulti] 0.5 mg PO HS 01/23/23 [History] Desvenlafaxine [Pristiq ER] 100 mg PO DAILY 01/23/23 [History] Fluticasone/Umeclidin/Vilanter [Trelegy Ellipta 200-62.5-25] 1 puff INHALATION RT-DAILY 01/23/23 [History] HYDROcodone/APAP 7.5-325MG [[place] 7.5-325] 1 tab PO TID PRN 01/23/23 [History] Ibuprofen [Motrin] 800 mg PO Q8H PRN 01/23/23 [History] LORazepam [Ativan] 0.5 mg PO HS PRN 01/23/23 [History] lamoTRIgine [LaMICtal] 200 mg PO BID 01/23/23 [History] predniSONE 5 mg PO DAILY 01/23/23 [History] Fluconazole [Diflucan] 100 mg PO DAILY #7 tab 01/27/23 [Rx] Ipratropium-Albuterol Nebulize [Duoneb 0.5 mg-3 mg/3 ml Soln] 3 ml INHALATION QID #120 each 01/27/23 [Rx] Levofloxacin [Levaquin] 750 mg PO DAILY #5 tab 01/27/23 [Rx] Nicotine 14Mg/24Hr Patch [Habitrol] 1 patch TRANSDERM DAILY #14 patch 01/27/23 [Rx] predniSONE 10 mg PO DAILY #30 tab 01/27/23 [Rx] Follow up Appointment(s)/Referral(s): Jamilah Oropeza MD [STAFF PHYSICIAN] - 02/04/23 2:15 pm Jose Antonio Gudino DO [Primary Care Provider] - 02/09/23 10:45 am Patient Instructions/Handouts: COPD (Chronic Obstructive Pulmonary Disease) (DC), Pneumonia (DC) Discharge Disposition: HOME WITH HOME HEALTH SERVICES
== END 2023-01-27 14:44 | disposition home health service (06) | DRG 720 ==
LOC: EC 11:16 → 4SSUR 13:27
PROVIDERS: ADMIT Hospitalist; ATTEND Hospitalist
DX: B37.7 Candidal sepsis (principal); B37.1 Pulmonary candidiasis; F31.9 Bipolar disorder, unspecified; F41.9 Anxiety disorder, unspecified; G47.00 Insomnia, unspecified; Z88.5 Allergy status to narcotic agent; J96.11 Chronic respiratory failure with hypoxia; F17.210 Nicotine dependence, cigarettes, uncomplicated; Z20.822 Contact with and (suspected) exposure to COVID-19; I10 Essential (primary) hypertension; M19.91 Primary osteoarthritis, unspecified site; K59.00 Constipation, unspecified; N39.3 Stress incontinence (female) (male); R74.01 Elevation of levels of liver transaminase levels; A41.59 Other Gram-negative sepsis; Z66 Do not resuscitate; A40.3 Sepsis due to Streptococcus pneumoniae; J15.0 Pneumonia due to Klebsiella pneumoniae; J13 Pneumonia due to Streptococcus pneumoniae; I25.10 Atherosclerotic heart disease of native coronary artery without angina pectoris; J44.0 Chronic obstructive pulmonary disease with (acute) lower respiratory infection; J44.1 Chronic obstructive pulmonary disease with (acute) exacerbation; Z79.52 Long term (current) use of systemic steroids; Z79.899 Other long term (current) drug therapy; Z99.81 Dependence on supplemental oxygen
CPT/HCPCS: 36415; 71045; 71046; 71260; 80053; 83605; 83735; 84145; 84484; 85025; 85610; 85730; 87040; 87070; 87077; 87186; 87205; 87449; 87636; 93005; 94640; 94760; 96361; 96365; 96367; 96372; 96375; 99285

== ENCOUNTER 2023-08-27 07:56 | Observation (INO) | payer OTHER ==
--- NOTE | 2023-08-27 08:07 | ED ---
General Adult HPI - General Chief complaint: Shortness of Breath Stated complaint: SOB Time Seen by Provider: 08/27/23 07:58 Source: patient, EMS, RN notes reviewed Mode of arrival: EMS Limitations: no limitations - History of Present Illness Initial comments: Patient is a 62-year-old female presenting to the emergency department with concerns with difficulty in breathing. Onset of symptoms was several days ago. Patient does have history of similar symptoms previously associated with COPD. Patient does have cough with yellow/green sputum. No fevers. No calf pain. No leg swelling. Patient was given nebulizer treatment as well as steroid by EMS. - Related Data Home Medications Medication Instructions Recorded Confirmed Albuterol Sulfate [Albuterol 2 puff PO RT-QID PRN 01/23/23 01/23/23 Sulfate Hfa] Brexpiprazole [Rexulti] 0.5 mg PO HS 01/23/23 01/23/23 Desvenlafaxine [Pristiq ER] 100 mg PO DAILY 01/23/23 01/23/23 Fluticasone/Umeclidin/Vilanter 1 puff INHALATION RT-DAILY 01/23/23 01/23/23 [Trelegy Ellipta 200-62.5-25] HYDROcodone/APAP 7.5-325MG [[place] 1 tab PO TID PRN 01/23/23 01/23/23 7.5-325] Ibuprofen [Motrin] 800 mg PO Q8H PRN 01/23/23 01/23/23 LORazepam [Ativan] 0.5 mg PO HS PRN 01/23/23 01/23/23 lamoTRIgine [LaMICtal] 200 mg PO BID 01/23/23 01/23/23 predniSONE 5 mg PO DAILY 01/23/23 01/23/23 Previous Rx's Medication Instructions Recorded Fluconazole [Diflucan] 100 mg PO DAILY #7 tab 01/27/23 Ipratropium-Albuterol Nebulize 3 ml INHALATION QID #120 each 01/27/23 [Duoneb 0.5 mg-3 mg/3 ml Soln] Levofloxacin [Levaquin] 750 mg PO DAILY #5 tab 01/27/23 Nicotine 14Mg/24Hr Patch [Habitrol] 1 patch TRANSDERM DAILY #14 patch 01/27/23 predniSONE 10 mg PO DAILY #30 tab 01/27/23 Allergies Allergy/AdvReac Type Severity Reaction Status Date / Time morphine Allergy Rash/Hives Verified 08/27/23 08:02 Review of Systems ROS Statement: Those systems with pertinent positive or pertinent negative responses have been documented in the HPI. ROS Other: All systems not noted in ROS Statement are negative. Constitutional: Denies: fever Eyes: Denies: eye pain ENT: Denies: ear pain Respiratory: Reports: as per HPI, cough, dyspnea, wheezes Cardiovascular: Denies: chest pain Endocrine: Denies: fatigue Gastrointestinal: Denies: abdominal pain Musculoskeletal: Denies: back pain Past Medical History Past Medical History: COPD History of Any Multi-Drug Resistant Organisms: None Reported Past Surgical History: No Surgical Hx Reported Past Anesthesia/Blood Transfusion Reactions: No Reported Reaction Past Psychological History: No Psychological Hx Reported Smoking Status: Former smoker Past Alcohol Use History: None Reported Past Drug Use History: None Reported General Exam Limitations: no limitations General appearance: alert Head exam: Present: normocephalic Eye exam: Present: normal appearance Neck exam: Present: normal inspection Respiratory exam: Present: respiratory distress, wheezes, accessory muscle use, decreased breath sounds, prolonged expiratory Cardiovascular Exam: Present: tachycardia GI/Abdominal exam: Present: soft. Absent: tenderness Extremities exam: Present: normal inspection. Absent: pedal edema, calf tenderness Neurological exam: Present: alert Psychiatric exam: Present: normal affect, normal mood Skin exam: Present: normal color Course Vital Signs 08/27/23 08/27/23 08/27/23 07:58 08:03 08:21 Temperature 98.9 F Pulse Rate 118 H 105 H Respiratory 26 H 26 H Rate Blood Pressure 117/69 O2 Sat by Pulse 98 Oximetry 08/27/23 08/27/23 08:30 08:37 Temperature Pulse Rate 101 H Respiratory Rate Blood Pressure O2 Sat by Pulse 99 Oximetry EKG Findings - EKG Results: EKG: interpreted by ERMD (Superior axis. Right bundle branch block. Motion artifact present. Nonspecific T waves.), sinus rhythm EKG shows: tachycardia Medical Decision Making - Medical Decision Making Was pt. sent in by a medical professional or institution (, PA, PROFESSIONAL SHOPPER, urgent care, hospital, or retirement...) When possible be specific @ -No Did you speak to anyone other than the patient for history (EMS, parent, family, police, friend...)? What history was obtained from this source @ -No Did you review nursing and triage notes (agree or disagree)? Why? @ -I reviewed and agree with nursing and triage notes Were old charts reviewed (outside hosp., previous admission, EMS record, old EKG, old radiological studies, urgent care reports/EKG's, retirement records)? Report findings @ -No old charts were reviewed Differential Diagnosis (chest pain, altered mental status, abdominal pain women, abdominal pain men, vaginal bleeding, weakness, fever, dyspnea, syncope, headache, dizziness, GI bleed, back pain, seizure, CVA, palpatations, mental health, musculoskeletal)? @ -Differential Dyspnea: Coronary syndrome, arrhythmia, tamponade, asthma, COPD, pulmonary embolism, pneumonia, pneumothorax, pulmonary effusion, anaphylaxis, diabetic ketoacidosis, flailed chest, pulmonary contusion, diaphragmatic rupture, anemia, neuromuscular, this is not meant to be an all-inclusive list. EKG interpreted by me (3pts min.). @ -As above X-rays interpreted by me (1pt min.). @ -X-ray shows COPD changes. CT interpreted by me (1pt min.). @ -None done U/S interpreted by me (1pt. min.). @ -None done What testing was considered but not performed or refused? (CT, X-rays, U/S, labs)? Why? @ -None What meds were considered but not given or refused? Why? @ -None Did you discuss the management of the patient with other professionals (professionals i.e. , PA, PROFESSIONAL SHOPPER, lab, RT, psych nurse, neonatal social worker, towel cabinet repairer, teacher, account officer, ed case manager)? Give summary @ -Case was discussed with Dr. Aguirre, covering for Dr. Kaye will admit covering Dr. Sawyer Was smoking cessation discussed for >3mins.? @ -No Was critical care preformed (if so, how long)? @ -No Were there social determinants of health that impacted care today? How? (Homelessness, low income, unemployed, alcoholism, drug addiction, transportati on, low edu. Level, literacy, decrease access to med. care, [facility], rehab)? @ -No Was there de-escalation of care discussed even if they declined (Discuss DNR or withdrawal of care, Hospice)? DNR status @ -No What co-morbidities impacted this encounter? (DM, HTN, Smoking, COPD, CAD, Cancer, CVA, ARF, Chemo, Hep., AIDS, mental health diagnosis, sleep apnea, morbid obesity)? @ -History of underlying COPD Was patient admitted / discharged? Hospital course, mention meds given and route, prescriptions, significant lab abnormalities, going to OR and other pertinent info. @ -Patient presents with dyspnea and COPD mild respiratory distress improved with nebulizer and steroid. Patient will be admitted with pulmonary consult. Undiagnosed new problem with uncertain prognosis? @ -No Drug Therapy requiring intensive monitoring for toxicity (Heparin, Nitro, Insulin, Cardizem)? @ -No Were any procedures done? @ -No Diagnosis/symptom? @ -COPD Acute, or Chronic, or Acute on Chronic? @ -Acute Uncomplicated (without systemic symptoms) or Complicated (systemic symptoms)? @ -Default Side effects of treatment? @ -No Exacerbation, Progression, or Severe Exacerbation? @ -Exacerbation Poses a threat to life or bodily function? How? (Chest pain, [place], [place], pneumonia, PE, COPD, DKA, ARF, appy, cholecystitis, CVA, Diverticulitis, Homicidal, Suicidal, threat to staff... and all critical care pts) @ -Threat to pulmonary function - Lab Data Result diagrams: 08/27/23 08:17 08/27/23 08:17 Lab Results 08/27/23 08/27/23 08/27/23 Range/Units 08:17 08:17 08:17 WBC 7.6 (3.8-10.6) k/uL RBC 4.77 (3.80-5.40) m/uL Hgb 14.8 (11.4-16.0) gm/dL Hct 44.5 (34.0-46.0) % MCV 93.3 (80.0-100.0) fL MCH 31.0 (25.0-35.0) pg MCHC 33.2 (31.0-37.0) g/dL RDW 13.6 (11.5-15.5) % Plt Count 220 (150-450) k/uL MPV 9.5 PT 10.0 (10.0-12.5) sec INR 0.9 (<1.2) APTT 22.9 (22.0-30.0) sec Sodium 139 (137-145) mmol/L Potassium 4.4 (3.5-5.1) mmol/L Chloride 102 (98-107) mmol/L Carbon Dioxide 32 H (22-30) mmol/L Anion Gap 5 mmol/L BUN 6 L (7-17) mg/dL Creatinine 0.66 (0.52-1.04) mg/dL Est GFR (CKD-EPI)AfAm >90 (>60 ml/min/1.73 sqM) Est GFR (CKD-EPI)NonAf >90 (>60 ml/min/1.73 sqM) Glucose 98 (74-99) mg/dL Plasma Lactic Acid Mando (0.7-2.0) mmol/L Calcium 8.6 (8.4-10.2) mg/dL Magnesium 1.8 (1.6-2.3) mg/dL Total Bilirubin 0.7 (0.2-1.3) mg/dL AST 38 H (14-36) U/L ALT 44 H (4-34) U/L Alkaline Phosphatase 149 H (38-126) U/L Total Protein 7.3 (6.3-8.2) g/dL Albumin 4.2 (3.5-5.0) g/dL 08/27/23 Range/Units 08:17 WBC (3.8-10.6) k/uL RBC (3.80-5.40) m/uL Hgb (11.4-16.0) gm/dL Hct (34.0-46.0) % MCV (80.0-100.0) fL MCH (25.0-35.0) pg MCHC (31.0-37.0) g/dL RDW (11.5-15.5) % Plt Count (150-450) k/uL MPV PT (10.0-12.5) sec INR (<1.2) APTT (22.0-30.0) sec Sodium (137-145) mmol/L Potassium (3.5-5.1) mmol/L Chloride (98-107) mmol/L Carbon Dioxide (22-30) mmol/L Anion Gap mmol/L BUN (7-17) mg/dL Creatinine (0.52-1.04) mg/dL Est GFR (CKD-EPI)AfAm (>60 ml/min/1.73 sqM) Est GFR (CKD-EPI)NonAf (>60 ml/min/1.73 sqM) Glucose (74-99) mg/dL Plasma Lactic Acid Mando 1.2 (0.7-2.0) mmol/L Calcium (8.4-10.2) mg/dL Magnesium (1.6-2.3) mg/dL Total Bilirubin (0.2-1.3) mg/dL AST (14-36) U/L ALT (4-34) U/L Alkaline Phosphatase (38-126) U/L Total Protein (6.3-8.2) g/dL Albumin (3.5-5.0) g/dL Disposition Clinical Impression: COPD (chronic obstructive pulmonary disease) Disposition: ADMITTED IP TO THIS HOSP Is patient prescribed a controlled substance at d/c from ED?: No Time of Disposition: 09:42
[2023-08-27] MEDS: IPRATROPIUM-ALBUTEROL 3 ML NEB INHALATION STA (08:21)
[2023-08-27] MEDS ORDERED: IPRATROPIUM-ALBUTEROL 3 ML NEB INHALATION PRN (08:47)
[2023-08-27] MEDS ORDERED: NALOXONE 0.4 MG/ML 1 ML VIAL IVP PRN (08:47)
[2023-08-27 09:15] LABS: INR 0.9 (<1.2); Partial Thromboplastin Time 22.9 sec (22.0-30.0)
[2023-08-27 09:20] LABS: ALT 44 U/L (4-34); AST 38 U/L (14-36); African American GFR (CKD) >90 (>60 ml/min/1.73 sqM); Albumin 4.2 g/dL (3.5-5.0); Alkaline Phosphatase 149 U/L (38-126); Anion Gap 5 mmol/L; Blood Urea Nitrogen 6 mg/dL (7-17); Calcium 8.6 mg/dL (8.4-10.2); Carbon Dioxide 32 mmol/L (22-30); Chloride 102 mmol/L (98-107); Glucose 98 mg/dL (74-99); Magnesium 1.8 mg/dL (1.6-2.3); Non-African American GFR(CKD) >90 (>60 ml/min/1.73 sqM); Sodium 139 mmol/L (137-145); Total Bilirubin 0.7 mg/dL (0.2-1.3); Total Protein 7.3 g/dL (6.3-8.2)
[2023-08-27] MEDS: methylPREDNISolone SOD SUCCI 125 MG/2 ML VIAL IV SCH (09:27)
[2023-08-27] MEDS: AZITHROMYCIN 500 MG in SODIUM CHLORIDE 0.9% 250 ML IVPB SCH (09:30)
[2023-08-27 09:31] LABS: Potassium 4.4 mmol/L (3.5-5.1)
[2023-08-27 09:34] LABS: HCT 44.5 % (34.0-46.0); HGB 14.8 gm/dL (11.4-16.0); MCHC 33.2 g/dL (31.0-37.0); MCV 93.3 fL (80.0-100.0); Mean Platelet Volume 9.5; Platelet Count 220 k/uL (150-450); RBC 4.77 m/uL (3.80-5.40); RDW 13.6 % (11.5-15.5); WBC 7.6 k/uL (3.8-10.6)
--- NOTE | 2023-08-27 09:34 | XR ---
EXAMINATION TYPE: XR chest 2V DATE OF EXAM: 08/27/2023 8:19 AM CLINICAL INDICATION:Female, 62 years old with history of difficulty breathing; [facility] COMPARISON: 05/16/2023 and before TECHNIQUE: XR chest 2V. Frontal and lateral views of the chest.. FINDINGS: Lines/Tubes/Devices: EKG leads overlie the chest. No indwelling lines are seen. Heart/mediastinum: Heart size is normal. Mediastinum appears normal. Pulmonary vascularity: Not increased, Lungs/Pleura: Hyperinflation with chronic interstitial changes, can be seen with COPD. Haziness over the mid to lower lungs attributed to soft tissue overlap. No sizable pleural effusion or evidence of pneumothorax. No focal lung consolidation is seen. Musculoskeletal: No acute osseous abnormality is seen. Mild degenerative changes of the shoulders and spine. Mild apex right curvature of the thoracic spine, and straightening of the normal thoracic kyp hosis. Other findings: None. IMPRESSION: Chronic changes without evidence of acute cardiopulmonary process.
[2023-08-27 10:35] LABS: Band Neutrophils % 8 %; Eosinophils # (M) 0.08 k/uL (0-0.7); Lymphocytes # (M) 1.75 k/uL (1.0-4.8); Monocytes # (M) 1.29 k/uL (0-1.0); Neutrophils % (M) 51 %; Nucleated Red Blood Cells 0 /100 WBC (0-0); Total Cells Counted 100
[2023-08-27 10:36] LABS: RBC Morphology Normal
--- NOTE | 2023-08-27 11:32 | P.CNPUL ---
History of Present Illness Consult date: 08/27/23 Requesting physician: Daryl Kaye Reason for consult: dyspnea, COPD Chief complaint: Shortness of breath History of present illness: This is a pleasant 62-year-old female patient with a known history of oxygen dependent, steroid-dependent chronic obstructive pulmonary disease with an FEV1 value of 37% of predicted. She is maintained on DuoNeb inhalations, albuterol HFA and Trelegy in the outpatient setting. She states she quit smoking in January 2023. She presented here to the emergency department with shortness of breath of several days without much improvement. She does have a cough with yellowish-green sputum. No fever or chills. No chest discomfort. X-ray shows chronic changes but no acute cardiopulmonary process. White count 7.6. Hemoglobin 14.8. Platelets 220. Sodium 139. Potassium 4.4. Bicarb 32. BUN 6. Creatinine 0.66. Glucose 98. AST 38. ALT 44. Alk phos 149. She is seen today in consultation in the emergency department. She is currently sitting up on a stretcher. Awake and alert in no acute distress. She is maintaining good O2 saturations in the 90s on 4 L/min per nasal cannula. She is afebrile. Hemodynamically stable. Review of Systems REVIEW OF SYSTEMS: CONSTITUTIONAL: Denies any recent significant weight loss or weight gain. EYES: Denies change in vision. EARS, NOSE, MOUTH, THROAT: Denies headaches, denies sore throat. CARDIOVASCULAR: Denies chest pain, palpitations or syncopal episodes. RESPIRATORY: Positive for shortness of breath, cough, congestion no hemoptysis. GASTROINTESTINAL: Denies change in appetite, denies abdominal pain GENITOURINARY: Denies hematuria, denies infections. MUSKULOSKELETAL: Denies pain, denies swelling. INTEGUMENTARY: Denies rash, denies eczema. NEUROLOGICAL: Denies recent memory loss, no recent seizure activity. PSYCHIATRIC: Denies anxiety, denies depression. HEMATOLOGIC/LYMPHATIC: Denies anemia, denies enlarged lymph nodes. Past Medical History Past Medical History: COPD History of Any Multi-Drug Resistant Organisms: None Reported Past Surgical History: No Surgical Hx Reported Past Anesthesia/Blood Transfusion Reactions: No Reported Reaction Past Psychological History: No Psychological Hx Reported Smoking Status: Former smoker Past Alcohol Use History: None Reported Past Drug Use History: None Reported Medications and Allergies Home Medications Medication Instructions Recorded Confirmed Type Albuterol Sulfate [Albuterol 2 puff INHALATION RT-QID PRN 01/23/23 08/27/23 History Sulfate Hfa] Desvenlafaxine [Pristiq ER] 100 mg PO DAILY 01/23/23 08/27/23 History Fluticasone/Umeclidin/Vilanter 1 puff INHALATION RT-DAILY 01/23/23 08/27/23 History [Trelegy Ellipta 200-62.5-25] HYDROcodone/APAP 7.5-325MG [[place] 1 tab PO TID PRN 01/23/23 08/27/23 History 7.5-325] Ibuprofen [Motrin] 800 mg PO Q8H PRN 01/23/23 08/27/23 History LORazepam [Ativan] 0.5 mg PO HS PRN 01/23/23 08/27/23 History lamoTRIgine [LaMICtal] 200 mg PO BID 01/23/23 08/27/23 History predniSONE 5 mg PO DAILY 01/23/23 08/27/23 History Brexpiprazole [Rexulti] 1 mg PO HS 08/27/23 08/27/23 History Famotidine 20 mg PO DAILY 08/27/23 08/27/23 History Ipratropium-Albuterol Nebulize 3 ml INHALATION RT-QID PRN 08/27/23 08/27/23 History [Duoneb 0.5 mg-3 mg/3 ml Soln] Allergies Allergy/AdvReac Type Severity Reaction Status Date / Time morphine Allergy Rash/Hives Verified 08/27/23 09:53 Physical Exam Vitals: Vital Signs Temp Pulse Resp BP Pulse Ox 08/27/23 10:49 97 22 113/68 99 08/27/23 08:37 99 08/27/23 08:30 101 H 08/27/23 08:21 105 H 08/27/23 08:03 26 H 08/27/23 07:58 98.9 F 118 H 26 H 117/69 98 Intake and Output 08/26/23 08/27/23 08/27/23 22:59 06:59 14:59 Other: Weight 47.174 kg GENERAL EXAM: Alert, pleasant 62-year-old female, on 4 L nasal cannula, fairly comfortable in no apparent distress. HEAD: Normocephalic. EYES: Normal reaction of pupils, equal size. NOSE: Clear with pink turbinates. THROAT: No erythema or exudates. NECK: No masses, no JVD. CHEST: No chest wall deformity. LUNGS: Equal air entry with few scattered rhonchi, end expiratory wheeze, diminished. CVS: S1 and S2 normal with no audible murmur, regular rhythm. ABDOMEN: No hepatosplenomegaly, normal bowel sounds, no guarding or rigidity. SPINE: No scoliosis or deformity SKIN: No rashes CENTRAL NERVOUS SYSTEM: No focal deficits, tone is normal in all 4 extremities. EXTREMITIES: There is no peripheral edema. No clubbing, no cyanosis. Peripheral pulses are intact. Results - Laboratory Findings CBC and BMP: 08/27/23 08:17 08/27/23 08:17 PT/INR, D-dimer PT 10.0 sec (10.0-12.5) 08/27/23 08:17 INR 0.9 (<1.2) 08/27/23 08:17 Abnormal lab findings: Abnormal Labs 08/27/23 08/27/23 08:17 08:17 Monocytes # (Manual) 1.29 H Carbon Dioxide 32 H BUN 6 L AST 38 H ALT 44 H Alkaline Phosphatase 149 H - Diagnostic Findings Chest x-ray: image reviewed Assessment and Plan Assessment: Acute exacerbation of chronic oxygen dependent, steroid-dependent obstructive pulmonary disease. FEV1 value 37% of predicted Former smoker History of anxiety/depression Plan: The patient was seen and evaluated Chest x-ray, labs and medications reviewed Add Symbicort, DuoNeb inhalations Add Solu-Medrol 60 mg every 6 hours Titrate the FiO2 as tolerated Check a procalcitonin Continue azithromycin for now We will continue to follow and make further recommendations based on her clini ade status I have personally seen and examined the patient, performed the documentation and the assessment and plan as written. Number of minutes spent on the visit: 20.
[2023-08-27] MEDS: IPRATROPIUM-ALBUTEROL 3 ML NEB INHALATION SCH (12:16)
[2023-08-27 13:04] LABS: Glucose,Whole Blood 116 mg/dL (70-110)
[2023-08-27] MEDS ORDERED: LORazepam 0.5 MG TAB PO PRN (14:39)
[2023-08-27] MEDS ORDERED: HYDROcodone/APAP 7.5-325MG 1 EACH TAB PO PRN (14:39)
[2023-08-27] MEDS: FAMOTIDINE 20 MG TAB PO SCH (15:11)
[2023-08-27 17:40] LABS: Glucose,Whole Blood 181 mg/dL (70-110)
[2023-08-27] MEDS ORDERED: DEXTROSE 50% SYRINGE 50 ML IVP PRN ×2 (18:09)
[2023-08-27] MEDS: INSULIN ASPART (NovoLOG) 100 UNIT/ML VIAL SQ SCH (18:16)
[2023-08-27] MEDS: SYMBICORT 160-4.5 MCG INHALER INHALATION SCH (20:00)
[2023-08-27 20:40] LABS: Glucose,Whole Blood 136 mg/dL (70-110)
[2023-08-27] MEDS: HEPARIN SODIUM,PORCINE 5,000 UNIT/ML 1 ML VIAL SQ SCH (21:34)
[2023-08-27] MEDS: lamoTRIgine 100 MG TAB PO SCH (21:37)
[2023-08-27] MEDS: BREXPIPRAZOLE 1 MG PO SCH (21:38)
--- NOTE | 2023-08-27 23:37 | P.HPIM ---
History of Present Illness H&P Date: 08/27/23 Chief Complaint: Shortness of breath Patient is a 62-year-old female with a past medical history of COPD on home oxygen and steroid-dependent, prior history of smoking presents to ER with complaints of worsening shortness of breath for the past few days. Denies any chest pain. Patient was also complaining of cough with yellowish sputum production. Patient usually wears 2.5 L oxygen via nasal cannula at home. She is requiring 4 L oxygen upon admission. Denies any fever or chills. No nausea vomiting abdominal pain or diarrhea. Chest x-ray showed chronic changes without evidence of acute cardiopulmonary process. EKG showed sinus tachycardia with short MA interval. Laboratory data showed WBC 7.6 hemoglobin 14.8 and platelets 220 Sodium 139 potassium 4.4 chloride 102 bicarb is 32 BUN 6 and creatinine 0.66 and blood sugar 98, AST 38 ALT 44 and alk phos 149 and procalcitonin level is 0.19 Influenza AB RSV and COVID-19 PCR not detected. Review of Systems Constitutional: Patient denies any fever or chills . No generalized weakness or weight loss. Abdomen: Patient denied nausea vomiting and diarrhea and abdominal pain. Cardiovascular: Patient denies any chest pain. Positive for short of breath no palpitations. No leg swelling Respiratory: Patient does have cough with sputum production and shortness of breath Neurologic: Patient denied any numbness or tingling headache. Musculoskeletal: Patient denies any complaints of joint swelling or deformity. Skin: Negative Psychiatric: Negative Endocrine: No heat or cold intolerance. No recent weight gain. Genitourinary: No dysuria or hematuria. All other 14 point ROS negative except the above Past Medical History Past Medical History: COPD History of Any Multi-Drug Resistant Organisms: None Reported Past Surgical History: No Surgical Hx Reported Past Anesthesia/Blood Transfusion Reactions: No Reported Reaction Past Psychological History: No Psychological Hx Reported Smoking Status: Former smoker Past Alcohol Use History: None Reported Past Drug Use History: None Reported Medications and Allergies Home Medications Medication Instructions Recorded Confirmed Type Albuterol Sulfate [Albuterol 2 puff INHALATION RT-QID PRN 01/23/23 08/27/23 History Sulfate Hfa] Desvenlafaxine [Pristiq ER] 100 mg PO DAILY 01/23/23 08/27/23 History Fluticasone/Umeclidin/Vilanter 1 puff INHALATION RT-DAILY 01/23/23 08/27/23 History [Trelegy Ellipta 200-62.5-25] HYDROcodone/APAP 7.5-325MG [Oriental 1 tab PO TID PRN 01/23/23 08/27/23 History 7.5-325] Ibuprofen [Motrin] 800 mg PO Q8H PRN 01/23/23 08/27/23 History LORazepam [Ativan] 0.5 mg PO HS PRN 01/23/23 08/27/23 History lamoTRIgine [LaMICtal] 200 mg PO BID 01/23/23 08/27/23 History predniSONE 5 mg PO DAILY 01/23/23 08/27/23 History Brexpiprazole [Rexulti] 1 mg PO HS 08/27/23 08/27/23 History Famotidine 20 mg PO DAILY 08/27/23 08/27/23 History Ipratropium-Albuterol Nebulize 3 ml INHALATION RT-QID PRN 08/27/23 08/27/23 History [Duoneb 0.5 mg-3 mg/3 ml Soln] Allergies Allergy/AdvReac Type Severity Reaction Status Date / Time morphine Allergy Rash/Hives Verified 08/27/23 09:53 Physical Exam Vitals: Vital Signs Temp Pulse Pulse Resp BP BP Pulse Ox 08/27/23 13:00 98.1 F 62 20 110/71 98 08/27/23 12:30 95 20 133/60 100 08/27/23 12:28 96 08/27/23 12:16 91 08/27/23 10:49 97 22 113/68 99 08/27/23 08:37 99 08/27/23 08:30 101 H 08/27/23 08:21 105 H 08/27/23 08:03 26 H 08/27/23 07:58 98.9 F 118 H 26 H 117/69 98 Intake and Output 08/26/23 08/27/23 08/27/23 22:59 06:59 14:59 Other: Voiding Method Toilet Weight 47.174 kg PHYSICAL EXAMINATION: Patient is lying in the bed comfortably, no acute distress, awake alert and oriented.. HEENT: Normocephalic. Neck is supple. Pupils reactive. Nostrils clear. Oral cavity is moist. Neck reveals no JVD, carotid bruits, or thyromegaly. CHEST EXAMINATION: Trachea is central. Symmetrical expansion. Bilateral diminished air entry and minimal wheezing. Nonlabored breathing. ABDOMEN: Soft. Bowel sounds normal. No organomegaly. No abdominal bruits. Extremities: reveal no edema. No clubbing or cyanosis Neurologically awake, alert, oriented x3 with well-coordinated movements. No focal deficits noted Skin: No rash or skin lesions. Psychiatric: Coperative. Nonsuicidal Musculoskeletal: No joint swelling or deformity. Normal range of motion. Results CBC & Chem 7: 08/28/23 03:39 08/28/23 03:39 Labs: Abnormal Lab Results - Last 24 Hours (Table) 08/27/23 08/27/23 08/27/23 Range/Units 08:17 08:17 13:04 Monocytes # (Manual) 1.29 H (0-1.0) k/uL Carbon Dioxide 32 H (22-30) mmol/L BUN 6 L (7-17) mg/dL POC Glucose (mg/dL) 116 H (70-110) mg/dL AST 38 H (14-36) U/L ALT 44 H (4-34) U/L Alkaline Phosphatase 149 H (38-126) U/L Thrombosis Risk Factor Assmnt - DVT/VTE Prophylaxis DVT/VTE Prophylaxis: Pharmacologic Prophylaxis ordered Assessment and Plan Assessment: Acute COPD exacerbation. Patient is oxygen and steroid-dependent at home. FEV1 37 % of predicted. Acute on chronic hypoxemic respiratory failure secondary to above Acute tracheobronchitis Prior history of smoking Mild transaminitis DVT prophylaxis CODE STATUS DNR/DNI Plan: Patient will be continued on oxygen supplementation and titrate back down to 2 L as per home regimen. Continue with IV Solu-Medrol and DuoNebs and Symbicort. Patient will be continued on azithromycin due to tracheobronchitis and mildly elevated procalcitonin level. Pulmonary is on board. Follow-up closely. Time with Patient: Greater than 30
--- NOTE | 2023-08-28 05:44 | P.PN ---
Subjective Progress Note Date: 08/28/23 Principal diagnosis: Shortness of breath. This is a pleasant 62-year-old female patient with a known history of oxygen dependent, steroid-dependent chronic obstructive pulmonary disease with an FEV1 value of 37% of predicted. She is maintained on DuoNeb inhalations, albuterol H FA and Trelegy in the outpatient setting. She states she quit smoking in January 2023. She presented here to the emergency department with shortness of breath of several days without much improvement. She does have a cough with yellowish-green sputum. No fever or chills. No chest discomfort. X-ray shows chronic changes but no acute cardiopulmonary process. White count 7.6. Hemoglobin 14.8. Platelets 220. Sodium 139. Potassium 4.4. Bicarb 32. BUN 6. Creatinine 0.66. Glucose 98. AST 38. ALT 44. Alk phos 149. She is seen today in consultation in the emergency department. She is currently sitting up on a stretcher. Awake and alert in no acute distress. She is maintaining good O2 saturations in the 90s on 4 L/min per nasal cannula. She is afebrile. Hemodynamically stable. Progress note dated August 28, 2023. 62-year-old female seen yesterday in consultation. Please see note above. The patient has a history of oxygen dependent and steroid-dependent COPD, with an FEV1 that is 37% of predicted. The patient takes DuoNebs, albuterol HFA, and Trelegy as an outpatient. She apparently quit smoking finally in January of last year. She presents to the emergency department with increasing shortness of breath for several days. Currently, she is resting comfortably. She is on 2 L of oxygen. Her breathing is a bit improved. In addition to shortness of breath, she did complain of cough, chest congestion, and phlegm production. The patient is currently on Symbicort, azithromycin, DuoNebs, and Solu-Medrol. Procalcitonin level is mildly elevated at 0.19. The patient tested negative for influenza A and B, RSV, and coronavirus. Objective - Vital Signs Vital signs: Vital Signs Temp 97.5 F L 08/28/23 01:48 Pulse 72 08/28/23 01:48 Resp 16 08/28/23 01:48 BP 101/67 08/28/23 01:48 Pulse Ox 96 08/28/23 01:48 FiO2 Intake & Output 08/27/23 08/27/23 08/28/23 06:59 18:59 06:59 Intake Total 118 1200 Balance 118 1200 Weight 47.174 kg Intake: Oral 118 1200 Other: Voiding Method Toilet - Exam No acute distress, oriented 3. Currently on 2 L of oxygen. Saturations are 96%. HEENT examination is grossly unremarkable. Mucous membranes are moist. No oral lesions. Neck supple. Full range of motion. No adenopathy thyromegaly or neck vein distention. Cardiovascular examination reveals regular rhythm rate. S1-S2 normal. No S3 or S4. No discernible murmur noted. Heart sounds are distant. Heart rate 72 bpm. Lungs reveal diminished bilateral breath sounds. Expiratory rhonchi and wheezes are noted. No crackles. Breath sounds are equal bilaterally. Abdomen soft bowel sounds are heard. No masses or tenderness. Extremities are intact. No cyanosis clubbing or edema. Skin is without rash or lesion. Neurologic examination is brief but nonfocal. - Labs CBC & Chem 7: 08/27/23 08:17 08/27/23 08:17 Labs: Abnormal Lab Results - Last 24 Hours (Table) 08/27/23 08/27/23 08/27/23 Range/Units 08:17 08:17 08:17 Monocytes # (Manual) 1.29 H (0-1.0) k/uL Carbon Dioxide 32 H (22-30) mmol/L BUN 6 L (7-17) mg/dL POC Glucose (mg/dL) (70-110) mg/dL AST 38 H (14-36) U/L ALT 44 H (4-34) U/L Alkaline Phosphatase 149 H (38-126) U/L Procalcitonin 0.19 H (0.02-0.09) ng/mL 08/27/23 08/27/23 08/27/23 Range/Units 13:04 17:32 20:39 Monocytes # (Manual) (0-1.0) k/uL Carbon Dioxide (22-30) mmol/L BUN (7-17) mg/dL POC Glucose (mg/dL) 116 H 181 H 136 H (70-110) mg/dL AST (14-36) U/L ALT (4-34) U/L Alkaline Phosphatase (38-126) U/L Procalcitonin (0.02-0.09) ng/mL Assessment and Plan Assessment: Acute exacerbation of chronic oxygen dependent, steroid-dependent obstructive pulmonary disease. FEV1 value 37% of predicted. Former smoker. Tobacco cessation January 2023. History of anxiety/depression. Plan: Plan dated August 28, 2023. The patient is seen in follow-up, room 531. The patient is currently on Symbicort, updrafts with albuterol sulfate and ipratropium bromide, and Solu- Medrol. The patient's procalcitonin level was mildly elevated. She continues on Zithromax. Labs, x-rays, medications are reviewed. The patient's FEV1 is 37%. The patient is a DO NOT RESUSCITATE patient. We will continue to follow make recommendations along the way. Will make sure that she has follow-up with my partner, after discharge. Time with Patient: Less than 30
[2023-08-28 07:08] LABS: Glucose,Whole Blood 105 mg/dL (70-110)
[2023-08-28 09:28] LABS: Basophils # (A) 0.03 X 10*3/uL (0.00-0.10); Basophils % (A) 0.4 %; Eosinophils # (A) 0 X 10*3/uL (0.04-0.35); Eosinophils % (A) 0 %; HCT 37.4 % (37.2-46.3); HGB 12.2 g/dL (12.0-15.0); Lymphocytes # (A) 0.72 X 10*3/uL (0.90-5.00); Lymphocytes % (A) 9.1 %; MCH 31.1 pg (27.0-32.0); MCHC 32.6 g/dL (32.0-37.0); MCV 95.4 FL (80.0-97.0); Mean Platelet Volume 10.7 FL (9.5-12.2); Monocytes # (A) 0.89 X 10*3/uL (0.20-1.00); Monocytes % (A) 11.2 %; NRBC Per 100 WBC 0 X 10*3/uL (0.00-0.01); Neutrophils # (A) 6.22 X 10*3/uL (1.80-7.70); Neutrophils % (A) 78.5 %; Platelet Count 278 X 10*3/uL (140-440); RBC 3.92 X 10*6/uL (4.10-5.20); RDW 13.2 % (11.5-14.5); WBC 7.92 X 10*3/uL (4.50-10.00)
[2023-08-28] MEDS: DESVENLAFAXINE SUCCINATE 50 MG TAB.ER.24H PO SCH (09:50)
[2023-08-28 09:51] LABS: BUN/Creat Ratio 14.67 Ratio (12.00-20.00); Blood Urea Nitrogen 8.8 mg/dL (9.0-27.0); Calcium 9.4 mg/dL (8.7-10.3); Carbon Dioxide 31.4 mmol/L (21.6-31.8); Chloride 97 mmol/L (96-109); Glucose 168 mg/dL (70-110); Potassium 4.7 mmol/L (3.5-5.5); Sodium 138 mmol/L (135-145)
[2023-08-28 12:38] LABS: Glucose,Whole Blood 152 mg/dL (70-110)
[2023-08-28 17:18] LABS: Glucose,Whole Blood 146 mg/dL (70-110)
[2023-08-28 20:16] LABS: Glucose,Whole Blood 303 mg/dL (70-110)
[2023-08-29 07:21] LABS: Glucose,Whole Blood 134 mg/dL (70-110)
[2023-08-29 08:06] VITALS: TEMP 98.5
[2023-08-29 12:22] LABS: Glucose,Whole Blood 137 mg/dL (70-110)
[2023-08-29 13:22] VITALS: BP 101/64
[2023-08-29 16:13] VITALS: PULSE 90; RESP 16
[2023-08-29 17:12] LABS: Glucose,Whole Blood 136 mg/dL (70-110)
--- NOTE | 2023-08-29 18:51 | P.PN ---
Subjective Progress Note Date: 08/29/23 On today's evaluation 08/29/2023, the patient is doing much better and she is currently on room air oxygen. No chest pain. No cough or hemoptysis at this point. Her blood work showed no significant leukocytosis. Normal coagulation profile. Normal renal function. The viral screen was negative. The pr ocalcitonin level was at 0.19. I reviewed the chest x-ray that was done at the time of admission and is essentially consistent with COPD and the patient has an FEV1 of 37% of predicted. She does have hyperinflation and air trapping on her chest x-ray. Diaphragms are quite flattened. She has quit smoking and she has been utilizing Trelegy Ellipta on outpatient basis. She has a home nebulizer. She is also on a maintenance of 5 mg of prednisone on an outpatient basis. No major side effects related to systemic steroid use. No edema lower extremities. No swelling in her legs. No she is in good spirits. Objective - Vital Signs Vital signs: Vital Signs Temp 98.5 F 08/29/23 12:20 Pulse 90 08/29/23 15:51 Resp 16 08/29/23 15:51 BP 101/64 08/29/23 12:20 Pulse Ox 96 08/29/23 12:20 FiO2 Intake & Output 08/28/23 08/29/23 08/29/23 18:59 06:59 18:59 Intake Total 120 Balance 120 Intake: Oral 120 Other: Voiding Method Toilet Toilet # Voids 1 3 2 # Bowel Movements 1 - Exam No acute distress, oriented 3. Currently on RA HEENT examination is grossly unremarkable. Mucous membranes are moist. No oral lesions. Neck supple. Full range of motion. No adenopathy thyromegaly or neck vein distention. Cardiovascular examination reveals regular rhythm rate. S1-S2 normal. No S3 or S4. No discernible murmur noted. Heart sounds are distant. Lungs reveal diminished bilateral breath sounds. Expiratory rhonchi and wheezes are noted. No crackles. Breath sounds are equal bilaterally. Abdomen soft bowel sounds are heard. No masses or tenderness. Extremities are intact. No cyanosis clubbing or edema. Skin is without rash or lesion. Neurologic examination is brief but nonfocal. - Labs CBC & Chem 7: 08/28/23 03:39 08/28/23 03:39 Labs: Abnormal Lab Results - Last 24 Hours (Table) 08/28/23 08/29/23 08/29/23 Range/Units 20:12 07:20 12:21 POC Glucose (mg/dL) 303 H 134 H 137 H (70-110) mg/dL 08/29/23 Range/Units 17:10 POC Glucose (mg/dL) 136 H (70-110) mg/dL Microbiology - Last 24 Hours (Table) 08/27/23 08:40 Blood Culture - Preliminary Blood 08/27/23 08:53 Blood Culture - Preliminary Blood Assessment and Plan Plan: Acute exacerbation of chronic oxygen dependent, steroid-dependent obstructive pulmonary disease. FEV1 value 37% of predicted. Former smoker. Tobacco cessation January 2023. History of anxiety/depression. Plan: Plan The patient is doing much better. She is improved considerably. I am suggesting discharging this patient home today on Trelegy Ellipta 1 puff a day, prednisone burst taper starting with 40 mg to be tapered by 10 mg every 4 days to go down to a maintenance of 5 mg p.o. daily. Absolutely no smoking. DuoNeb updrafts 4 times a day as needed. Oxygen as needed and the patient has a pulse oximeter at home and she should be able to supplement herself with oxygen as long as she drops under 89%. Resume home medications. Follow-up in the office. Clinically stable. Cleared for discharge from the pulmonary standpoint.
[2023-08-29 20:16] LABS: Glucose,Whole Blood 190 mg/dL (70-110)
== END 2023-08-29 20:38 | disposition home or self-care (01) ==
LOC: EC 07:56 → 4SSUR 08:47 → 5NMEDONC 12:02
PROVIDERS: ADMIT Hospitalist; ATTEND Hospitalist
DX: J44.1 Chronic obstructive pulmonary disease with (acute) exacerbation (principal); J96.21 Acute and chronic respiratory failure with hypoxia; R74.01 Elevation of levels of liver transaminase levels; Z87.891 Personal history of nicotine dependence; J20.9 Acute bronchitis, unspecified
CPT/HCPCS: 96366 ×2; 96376 ×3; 96365; 96375; 99285; 36415; 94640 ×6; 94760; 93005; 80053; 80048; 80175; 83605; 83735; 85025 ×2; 85610; 85730; 87040; 84145; 87636; 71046; G0378 ×3; J0456 ×3; J2919 ×3